=== PATIENT | female | born 1945 | race Caucasian/White ===

== ENCOUNTER → 2019-02-07 | Outpatient (CLI) | payer MEDICARE ==
[2019-02-07 09:27] LABS: Cholesterol 214 mg/dL (< 200); HDL Cholesterol 37 mg/dL (40-59); LDL Cholesterol 155 mg/dL (< 100); Triglycerides 210 mg/dL (< 150)
== END | disposition home or self-care (01) ==
LOC: LAB 08:37
PROVIDERS: ATTEND Internal Medicine
DX: E78.5 Hyperlipidemia, unspecified (principal); R07.89 Other chest pain
CPT/HCPCS: 36415; 80061

== ENCOUNTER → 2019-02-18 | Outpatient (CLI) | payer MEDICARE ==
[~2019-02-18] VITALS: Ht 165.1 cm; Wt 72.6 kg
[~2019-02-18] MED LIST: ADENOSINE 61 MG in GIVE UN-DILUTED 0 ML IV STA
[2019-02-18 09:33] VITALS: BP 140/84
== END | disposition home or self-care (01) ==
LOC: XY 07:59
PROVIDERS: ATTEND Internal Medicine
DX: I25.10 Atherosclerotic heart disease of native coronary artery without angina pectoris (principal); E78.5 Hyperlipidemia, unspecified; Z95.1 Presence of aortocoronary bypass graft
CPT/HCPCS: 78452; 93017; A9500; J0153

== ENCOUNTER 2019-03-25 03:30 | Inpatient (IN) | payer MEDICARE ==
[~2019-03-25] VITALS: Ht 165.1 cm; Wt 72.0 kg
[2019-03-25 03:57] LABS: Hemoglobin 15.5 g/dL (12.2-16.2); Lymphocytes # (auto) 3.8 uL; Monocytes # (auto) 0.7 uL; Nucleated Red Blood Cells % 0.1 %; White Blood Cell 8.1 10^3/uL (4.4-10.8)
[2019-03-25 03:58] LABS: Basophils # (auto) 0 uL; Basophils % (auto) 0.3 % (0.0-2.0); Eosinophils # (auto) 0.2 uL; Eosinophils % (auto) 2.7 % (0.0-7.0); Hematocrit 45.5 % (36.0-46.0); Lymphocytes % (auto) 47.2 % (10.0-50.0); Mean Corpuscular Hemoglobin 26.8 pg (28.0-32.0); Mean Corpuscular Hgb Conc. 34.1 g/dL (32.0-36.0); Mean Corpuscular Volume 78.8 fL (80.0-100.0); Monocytes % (auto) 8.1 % (0.0-12.0); Neutrophils # (auto) 3.4 uL; Neutrophils % (auto) 41.7 % (37.0-80.0); Platelet Count (auto) 341 10^3/uL (140-450); Red Blood Cells 5.77 10^6/uL (4.0-5.20); Red Cell Distribution Width 16.2 % (11.8-14.3)
[2019-03-25] MEDS ORDERED: NITROGLYCERIN 0.4 MG SL TAB SL PRN ×2 (04:00→05:15)
[2019-03-25] MEDS ORDERED: ASPirin 81 mg TAB PO ONE (04:00)
[2019-03-25] MEDS ORDERED: MORPHINE SULFATE 4 MG/ML SYR/VIAL IV ONE (04:00)
[2019-03-25] MEDS ORDERED: ONDANSETRON HCL 4 MG/2 ML VIAL IV ONE (04:00)
[2019-03-25 04:12] LABS: INR 1.06 (0.9-1.15); Partial Thromboplastin Time 29.3 sec (23.64-32.05)
[2019-03-25 04:14] LABS: Albumin 3.2 g/dL (3.4-5.0); BUN/Creatinine Ratio 15.2; Calcium 9.4 mg/dL (8.5-10.1); Potassium 3.8 mmol/L (3.5-5.1)
[2019-03-25 04:19] LABS: Bilirubin, Total 0.4 mg/dL (0.2-1.0); Total Protein 8.6 g/dL (6.4-8.2)
[2019-03-25] MEDS ORDERED: ENOXAPARIN SOD 80 MG/0.8ML SYRINGE SC ONE (04:30)
[2019-03-25] MEDS: SODIUM CHLORIDE 0.9% 1,000 ML IV SCH ×2 (05:05→21:36)
[2019-03-25] MEDS ORDERED: MORPHINE SULF INJ 2 MG/ML SYRINGE 1ML IV PRN (05:15)
[2019-03-25] MEDS ORDERED: ACETAMINOPHEN 325 MG TAB PO PRN (05:15)
[2019-03-25] MEDS ORDERED: DOCUSATE SOD 100 MG CAP PO PRN (05:15)
[2019-03-25] MEDS ORDERED: ONDANSETRON HCL 4 MG/2 ML VIAL IV PRN (05:15)
[2019-03-25] MEDS ORDERED: LORazepam 0.5 MG TAB PO PRN (05:15)
[2019-03-25] MEDS ORDERED: HYDROcodone-ACET 5/325MG TAB PO PRN (05:15)
[2019-03-25] MEDS ORDERED: MORPHINE SULFATE 4 MG/ML SYR/VIAL IV PRN (05:15)
[2019-03-25] MEDS ORDERED: CLOPIDOGREL 300 MG TAB PO ONE (05:15)
[2019-03-25] MEDS ORDERED: CLOPIDOGREL BISULFATE 75 MG TAB PO ONE ×3 (07:45→13:45)
[2019-03-25 07:53] LABS: Cholesterol 336 mg/dL (< 200); HDL Cholesterol 33 mg/dL (40-59); LDL Cholesterol 273 mg/dL (< 100); Triglycerides 165 mg/dL (< 150)
[2019-03-25] MEDS ORDERED: CLOPIDOGREL 300 MG TAB ONE ×2 (08:05→14:11)
[2019-03-25] MEDS: ASPirin 81 mg TAB PO SCH (08:08)
[2019-03-25] MEDS ORDERED: POTASSIUM CHL 20 Meq TABLET PO ONE (08:30)
[2019-03-25] MEDS: LISINOPRIL 5 MG TAB PO SCH (10:00)
[2019-03-25] MEDS ORDERED: AMIODARONE HCL 200 MG TAB PO SCH (10:00)
[2019-03-25] MEDS: METOPROLOL TARTRATE 25 MG TAB PO SCH ×3 (10:00→22:32)
[2019-03-25] MEDS ORDERED: LIDOCAINE 2%HCL (LOCAL ANESTH.) INJ 20ML MDV ONE (10:15)
[2019-03-25] MEDS ORDERED: MIDAZOLAM HCL 1MG/1ML-2 ML VIAL ONE ×2 (10:15→12:39)
[2019-03-25] MEDS ORDERED: fentaNYL CITRATE 100 MCG/2 ML VL ONE (10:15)
[2019-03-25] MEDS ORDERED: ANGIOMAX 250 MG VIAL IV ONE ×2 (10:15→12:07)
[2019-03-25] MEDS ORDERED: IODIXANOL 320MG/ML 100ML BTL IV ONE ×2 (10:16→11:10)
[2019-03-25] MEDS ORDERED: SODIUM CHL 0.9% 50 ML ONE ×2 (10:16→12:07)
[2019-03-25] MEDS ORDERED: VERAPAMIL 2.5MG/ML INJ 2ML VIAL IV ONE (10:19)
[2019-03-25] MEDS ORDERED: HEPARIN SODIUM (PORCINE) 5000 UNITS/ML 1ML VIAL ONE (10:20)
[2019-03-25] MEDS ORDERED: PHENYLEPHRINE HCL 10 MG/ML VL ONE (11:26)
[2019-03-25] MEDS ORDERED: HYDROmorphone HCL 2 MG/ML VL ONE (11:45)
[2019-03-25] MEDS ORDERED: ATROPINE SULF 1 MG/10ml SYR ONE (11:53)
[2019-03-25] MEDS ORDERED: ONDANSETRON HCL 4 MG/2 ML VIAL ONE (12:23)
[2019-03-25] MEDS ORDERED: AMIODARONE HCL (50 MG/ ML) 3 ML VIAL IV ONE (12:40)
[2019-03-25] MEDS ORDERED: SODIUM CHLORIDE 0.9% 1,000 ML IV ONE (13:15)
[2019-03-25] MEDS ORDERED: METOCLOPRAMIDE HCL 5MG/ml INJ 2ml VIAL ONE (13:24)
[2019-03-25] MEDS ORDERED: METOCLOPRAMIDE HCL 5MG/ml INJ 2ml VIAL IV ONE (13:30)
[2019-03-25] MEDS: FENOFIBRATE PO SCH (13:30)
[2019-03-25] MEDS ORDERED: METOCLOPRAMIDE HCL 5MG/ml INJ 2ml VIAL IV PRN (13:30)
[2019-03-25] MEDS ORDERED: PANTOPRAZOLE 40 MG/10 ML VIAL INJ IV ONE (14:45)
--- NOTE | 2019-03-25 15:18 | NUR ---
Received patient from lab scientist. Patient experiencing nausea and vomiting. Phenergan was given prior to coming to tele floor. VS 98/56, 96.4, 62 heart rate, 20 RR and 93%. Right groin dressing clean, dry and intact. Patients bed in locked and lowest position and call light within reach. Patients orders to stay flat until 3:30 and in bed until 7:30. Will continue to monitor.
--- NOTE | 2019-03-25 15:30 | NUR ---
Patients will bring in home medications to reconcile
--- NOTE | 2019-03-25 16:55 | NUR ---
Talked to Dr. Lange, he will write prescription tomorrow for needed medications prior to discharge home.
[2019-03-25 17:08] VITALS: BP 98/56
--- NOTE | 2019-03-25 19:50 | NUR ---
RECEIVED PATIENT IN BED, AAOX4. NO DISTRESS NOTED. AFEBRILE. INTRODUCED MYSELF TO THE PATIENT. ORIENTATION DONE. MILD BLE WEAKNESS NOTED. RIGHT GROIN HAS A DRESSING THAT IS ALL CLEAN, DRY AND INTACT. NO BLEEDING, HEMATOMA NOTED. RIGHT LEG IS A LITTLE COLD. RIGHT PEDAL PULSE IS WEAK. WILL KEEP AN EYE ON PATIENT. POCS DISCUSSED WITH PATIENT AND SHOWED UNDERSTANDING. BED KEPT ON LOWEST POSITION. SIDE RAILS UP. CALL LIGHT/TABLE IN REACH. KEPT COMFORTABLE.
[2019-03-25] MEDS: AMIODARONE HCL 200 MG TAB PO SCH (21:36)
[2019-03-25 22:00] VITALS: BP 118/71
[2019-03-25] MEDS ORDERED: ATORVASTATIN 20 MG TAB PO SCH (22:00)
--- NOTE | 2019-03-25 23:30 | NUR ---
TROP= 6.42 PATIENT RECENTLY HAD AN ANGIOPLASTY. PATIENT IS ASLEEP. ASYMPTOMATIC. NSR ON THE MONITOR.
[2019-03-26 05:00] VITALS: BP 111/74
[2019-03-26 05:46] LABS: Basophils # (auto) 0 uL; Basophils % (auto) 0.6 % (0.0-2.0); Eosinophils # (auto) 0 uL; Eosinophils % (auto) 0.5 % (0.0-7.0); Hematocrit 38.7 % (36.0-46.0); Hemoglobin 12.6 g/dL (12.2-16.2); Lymphocytes # (auto) 1.7 uL; Lymphocytes % (auto) 24.6 % (10.0-50.0); Mean Corpuscular Hemoglobin 25.9 pg (28.0-32.0); Mean Corpuscular Hgb Conc. 32.6 g/dL (32.0-36.0); Mean Corpuscular Volume 79.5 fL (80.0-100.0); Monocytes # (auto) 0.7 uL; Monocytes % (auto) 9.2 % (0.0-12.0); Neutrophils # (auto) 4.6 uL; Neutrophils % (auto) 65.1 % (37.0-80.0); Platelet Count (auto) 258 10^3/uL (140-450); Red Blood Cells 4.88 10^6/uL (4.0-5.20); Red Cell Distribution Width 15.9 % (11.8-14.3); White Blood Cell 7.1 10^3/uL (4.4-10.8)
[2019-03-26 06:05] LABS: Calcium 8.5 mg/dL (8.5-10.1); Potassium 3.7 mmol/L (3.5-5.1)
--- NOTE | 2019-03-26 06:10 | NUR ---
TROPONIN= 11.4 PATIENT RECENTLY HAD AN ANGIOPLASTY DONE. PATIENT REMAINS STABLE. NO DISTRESS NOTED. NSR ON THE MONITOR. WILL INFORM .
--- NOTE | 2019-03-26 06:30 | NUR ---
ON BED, ASLEEP. STABLE. NO DISTRESS NOTED. FOR MORE CARE AND MANAGEMENT.
--- NOTE | 2019-03-26 07:10 | NUR ---
EMMETT NEGRON, RE: HIGH TROPONIN. WILL ENDORSE TO AM SHIFT RN.
--- NOTE | 2019-03-26 07:30 | NUR ---
Opening Shift Note Assumed care of patient, awake and alert laying in bed. No S/S of distress/SOB or pain. Instructed on POC and to call for assist PRN, bed in locked and lowest position and call light within reach. Will continue to monitor for changes Q1hr and PRN.
--- NOTE | 2019-03-26 08:01 | NUR ---
Hospitalist returned night nurses call, informed Hospitalist of elevated troponins. No orders given
[2019-03-26 09:00] VITALS: BP 115/64
[2019-03-26] MEDS: LISINOPRIL 5 MG TAB PO SCH (10:00)
[2019-03-26] MEDS: FENOFIBRATE PO SCH (10:00)
[2019-03-26] MEDS ORDERED: PANTOPRAZOLE 40 MG/10 ML VIAL INJ IV SCH (10:00)
[2019-03-26] MEDS: ASPirin 81 mg TAB PO SCH (10:14)
[2019-03-26] MEDS: AMIODARONE HCL 200 MG TAB PO SCH (10:15)
[2019-03-26] MEDS: METOPROLOL TARTRATE 25 MG TAB PO SCH (10:15)
--- NOTE | 2019-03-26 11:45 | NUR ---
Med Rec Family brought in patients home meds, updated med rec
[2019-03-26] MEDS ORDERED: METO-169 PO (12:18)
[2019-03-26] MEDS ORDERED: LEFL20TA PO (12:18)
[2019-03-26] MEDS ORDERED: ASPI-404 PO (12:18)
[2019-03-26 13:00] VITALS: BP 112/78
--- NOTE | 2019-03-26 13:04 | NUR ---
Dr. Knapp bedside with patient discussing plan of care.
[2019-03-26 14:27] VITALS: BP 112/78
--- NOTE | 2019-03-26 16:50 | NUR ---
Vaccination Patient said she has not had her flu shot this season. She did not recall telling me she had it when completing her initial assessment. Placed order for flu shot.
[2019-03-26] MEDS ORDERED: INFLUENZA QUAD 2019-2020 0.5ml SYRG IM ONE ×2 (16:54→17:00)
[2019-03-26 17:00] VITALS: BP 126/76
--- NOTE | 2019-03-26 17:08 | NUR ---
Discharge instructions given as ordered. Encourage to follow up with PCP in 1 week. Also instructed to call Dr. Rubi office, phone # provided to schedule appointment to be seen within the week. Unable to schedule the appointment as the answering service said they were experiencing technical problems and to call on Mon. Relayed this info to patient. All questions and concerns addressed. Patient verbalized understanding. Medication reconciliation form completed and copy given to patient. Needed flu vaccine given. IV removed with catheter intact and pressure dressing applied. Telemetry unit returned to ICU.
--- NOTE | 2019-03-26 17:21 | NUR ---
Patient taken to vehicle via wheelchair with all personal belongings, accompanied by staff member and family member. No distress noted at time of departure.
== END 2019-03-26 17:21 | disposition home or self-care (01) | DRG 246 ==
LOC: ER 03:36 → TELE 03:37 → TELE-WESTW 15:12
PROVIDERS: ADMIT Hospitalist; ATTEND Internal Medicine
PROC: 027137Z Dilation of Coronary Artery, Two Arteries with Four or More Drug-eluting Intraluminal Devices, Percutaneous Approach (ICD-10-PCS; principal; 2019-03-25)
PROC: B240ZZ3 Ultrasonography of Single Coronary Artery, Intravascular (ICD-10-PCS; 2019-03-25)
PROC: 4A023N7 Measurement of Cardiac Sampling and Pressure, Left Heart, Percutaneous Approach (ICD-10-PCS; 2019-03-25)
PROC: B2131ZZ Fluoroscopy of Multiple Coronary Artery Bypass Grafts using Low Osmolar Contrast (ICD-10-PCS; 2019-03-25)
PROC: B2181ZZ Fluoroscopy of Left Internal Mammary Bypass Graft using Low Osmolar Contrast (ICD-10-PCS; 2019-03-25)
PROC: B2151ZZ Fluoroscopy of Left Heart using Low Osmolar Contrast (ICD-10-PCS; 2019-03-25)
DX: I48.92 Unspecified atrial flutter (principal); I21.4 Non-ST elevation (NSTEMI) myocardial infarction; N17.0 Acute kidney failure with tubular necrosis; I13.0 Hypertensive heart and chronic kidney disease with heart failure and stage 1 through stage 4 chronic kidney disease, or unspecified chronic kidney disease; R73.9 Hyperglycemia, unspecified; E78.5 Hyperlipidemia, unspecified; I49.3 Ventricular premature depolarization; N18.3 Chronic kidney disease, stage 3 (moderate); I25.10 Atherosclerotic heart disease of native coronary artery without angina pectoris; Z88.0 Allergy status to penicillin; Z95.1 Presence of aortocoronary bypass graft; Z79.899 Other long term (current) drug therapy; Z88.2 Allergy status to sulfonamides; Z88.8 Allergy status to other drugs, medicaments and biological substances; Z91.040 Latex allergy status
CPT/HCPCS: 36415; 71045; 80048; 80053; 80061; 83735; 83880; 84484; 85025; 85610; 85730; 86850; 86900; 86901; 92928; 92978; 93005; 93306; 93459; 96372; 96374; 96375; C1887; C9113; G0378; J2250; J2405; Q9967

== ENCOUNTER → 2019-06-11 | Outpatient (CLI) | payer OTHER, MEDICARE ==
[~2019-06-11] MED LIST changes: -ADENOSINE 61 MG in GIVE UN-DILUTED 0 ML IV STA; +ASPI-404 PO; +LEFL20TA PO; +METO-169 PO
[2019-06-11 10:42] LABS: Basophils # (auto) 0.1 uL; Basophils % (auto) 2.8 % (0.0-2.0); Eosinophils # (auto) 0.4 uL; Eosinophils % (auto) 6.8 % (0.0-7.0); Hematocrit 46.1 % (36.0-46.0); Hemoglobin 15.1 g/dL (12.2-16.2); Lymphocytes # (auto) 1.2 uL; Lymphocytes % (auto) 23.3 % (10.0-50.0); Mean Corpuscular Hemoglobin 26.4 pg (28.0-32.0); Mean Corpuscular Hgb Conc. 32.7 g/dL (32.0-36.0); Mean Corpuscular Volume 80.7 fL (80.0-100.0); Monocytes # (auto) 0.5 uL; Monocytes % (auto) 10.1 % (0.0-12.0); Nucleated Red Blood Cells % 0.1 %; Platelet Count (auto) 228 10^3/uL (140-450); Red Blood Cells 5.71 10^6/uL (4.0-5.20); White Blood Cell 5.3 10^3/uL (4.4-10.8)
[2019-06-11 11:04] LABS: Albumin 3.6 g/dL (3.4-5.0); Potassium 4.3 mmol/L (3.5-5.1)
[2019-06-11 11:07] LABS: BUN/Creatinine Ratio 17.9; Bilirubin, Total 0.3 mg/dL (0.2-1.0); Total Protein 7.5 g/dL (6.4-8.2)
== END | disposition home or self-care (01) ==
LOC: LAB 10:25
PROVIDERS: ATTEND Internal Medicine
DX: I25.10 Atherosclerotic heart disease of native coronary artery without angina pectoris (principal)
CPT/HCPCS: 36415; 80053; 84439; 84443; 85025; 85652

== ENCOUNTER → 2019-07-16 | Outpatient (CLI) | payer OTHER, MEDICARE ==
[2019-07-16 09:03] LABS: Basophils # (auto) 0.1 10 ^3/uL (0-0.2); Basophils % (auto) 2.4 % (0.0-2.0); Eosinophils # (auto) 0.4 10 ^3/uL (0-0.8); Hematocrit 43.3 % (36.0-46.0); Hemoglobin 14.5 g/dL (12.2-16.2); Lymphocytes # (auto) 1.5 10 ^3/uL (0.4-5.4); Lymphocytes % (auto) 28.1 % (10.0-50.0); Mean Corpuscular Hemoglobin 27.6 pg (28.0-32.0); Mean Corpuscular Hgb Conc. 33.5 g/dL (32.0-36.0); Mean Corpuscular Volume 82.4 fL (80.0-100.0); Monocytes # (auto) 0.6 10 ^3/uL (0-1.3); Monocytes % (auto) 10.5 % (0.0-12.0); Neutrophils # (auto) 2.8 10 ^3/uL (1.6-8.6); Nucleated Red Blood Cells % 0.2 %; Platelet Count (auto) 203 10^3/uL (140-450); Red Blood Cells 5.26 10^6/uL (4.0-5.20); Red Cell Distribution Width 18.8 % (11.8-14.3); White Blood Cell 5.4 10^3/uL (4.4-10.8)
[2019-07-16 09:35] LABS: Calcium 8.9 mg/dL (8.5-10.1); Magnesium 2.2 mg/dL (1.6-2.6); Potassium 4.4 mmol/L (3.5-5.1)
[2019-07-16 09:40] LABS: Albumin 3.2 g/dL (3.4-5.0); BUN/Creatinine Ratio 15.3; Bilirubin, Total 0.3 mg/dL (0.2-1.0); Total Protein 7.3 g/dL (6.4-8.2)
== END | disposition home or self-care (01) ==
LOC: LAB 08:32
PROVIDERS: ATTEND Internal Medicine
DX: M06.9 Rheumatoid arthritis, unspecified (principal); K52.9 Noninfective gastroenteritis and colitis, unspecified
CPT/HCPCS: 36415; 80053; 83735; 85025; 87045; 87427

== ENCOUNTER → 2019-07-30 | Outpatient (CLI) | payer OTHER | END | disposition home or self-care (01) | LOC: LAB 14:02 | PROVIDERS: ATTEND Internal Medicine | DX: K52.9 Noninfective gastroenteritis and colitis, unspecified (principal) | CPT/HCPCS: 87493 ==

== ENCOUNTER → 2019-09-20 | Outpatient (CLI) | payer OTHER, MEDICARE ==
[~2019-09-20] VITALS: Ht 165.1 cm; Wt 72.6 kg
[~2019-09-20] MED LIST changes: +ADENOSINE 61 MG in GIVE UN-DILUTED 0 ML IV ONE; +ADENOSINE 90 MG/30 ML INJ IV ONE
== END | disposition home or self-care (01) ==
LOC: Rad HDHVI 13:32
PROVIDERS: ATTEND Internal Medicine Cardiovascular Disease
DX: I10 Essential (primary) hypertension (principal); R07.9 Chest pain, unspecified; I25.2 Old myocardial infarction; I25.10 Atherosclerotic heart disease of native coronary artery without angina pectoris; E78.00 Pure hypercholesterolemia, unspecified; Z95.1 Presence of aortocoronary bypass graft; Z82.49 Family history of ischemic heart disease and other diseases of the circulatory system
CPT/HCPCS: 78452; 93005; 96374; 96375; A9500; J0153

== ENCOUNTER → 2019-09-26 | Outpatient (CLI) | payer OTHER, MEDICARE ==
[~2019-09-26] MED LIST changes: -ADENOSINE 61 MG in GIVE UN-DILUTED 0 ML IV ONE; -ADENOSINE 90 MG/30 ML INJ IV ONE
[2019-09-26 14:49] LABS: Basophils # (auto) 0.1 10 ^3/uL (0-0.2); Basophils % (auto) 1.9 % (0.0-2.0); Eosinophils # (auto) 0.3 10 ^3/uL (0-0.8); Eosinophils % (auto) 5.8 % (0.0-7.0); Hematocrit 42.5 % (36.0-46.0); Hemoglobin 13.9 g/dL (12.2-16.2); Lymphocytes # (auto) 1.6 10 ^3/uL (0.4-5.4); Lymphocytes % (auto) 31.8 % (10.0-50.0); Mean Corpuscular Hemoglobin 27.9 pg (28.0-32.0); Mean Corpuscular Hgb Conc. 32.6 g/dL (32.0-36.0); Mean Corpuscular Volume 85.7 fL (80.0-100.0); Monocytes # (auto) 0.5 10 ^3/uL (0-1.3); Monocytes % (auto) 9.4 % (0.0-12.0); Neutrophils # (auto) 2.6 10 ^3/uL (1.6-8.6); Neutrophils % (auto) 51.1 % (37.0-80.0); Nucleated Red Blood Cells % 0.1 %; Platelet Count (auto) 203 10^3/uL (140-450); Red Blood Cells 4.96 10^6/uL (4.0-5.20); Red Cell Distribution Width 15.2 % (11.8-14.3)
== END | disposition home or self-care (01) ==
LOC: LAB 14:32
PROVIDERS: ATTEND Internal Medicine Rheumatology
DX: M06.9 Rheumatoid arthritis, unspecified (principal)
CPT/HCPCS: 36415; 82040; 82565; 84450; 84460; 85025

== ENCOUNTER → 2019-11-12 | Outpatient (CLI) | payer OTHER, MEDICARE ==
[2019-11-12 09:00] LABS: Cholesterol 385 mg/dL (< 200); HDL Cholesterol 39 mg/dL (40-59); LDL Cholesterol 267 mg/dL (< 100); Triglycerides 265 mg/dL (< 150)
== END | disposition home or self-care (01) ==
LOC: LAB 08:06
PROVIDERS: ATTEND Internal Medicine
DX: E78.00 Pure hypercholesterolemia, unspecified (principal)
CPT/HCPCS: 36415; 80061

== ENCOUNTER → 2020-03-13 | Outpatient (CLI) | payer OTHER ==
[~2020-03-13] MED LIST changes: -ASPI-404 PO; +ASPI-543 PO
[2020-03-13 12:11] LABS: Basophils # (auto) 0.1 10 ^3/uL (0-0.2); Basophils % (auto) 1.9 % (0.0-2.0); Eosinophils # (auto) 0.3 10 ^3/uL (0-0.8); Eosinophils % (auto) 4.7 % (0.0-7.0); Hematocrit 42.4 % (36.0-46.0); Hemoglobin 14.3 g/dL (12.2-16.2); Lymphocytes # (auto) 1.3 10 ^3/uL (0.4-5.4); Lymphocytes % (auto) 22.7 % (10.0-50.0); Mean Corpuscular Hemoglobin 29.6 pg (28.0-32.0); Mean Corpuscular Hgb Conc. 33.7 g/dL (32.0-36.0); Mean Corpuscular Volume 87.9 fL (80.0-100.0); Monocytes # (auto) 0.5 10 ^3/uL (0-1.3); Monocytes % (auto) 8.6 % (0.0-12.0); Neutrophils # (auto) 3.6 10 ^3/uL (1.6-8.6); Neutrophils % (auto) 62.1 % (37.0-80.0); Nucleated Red Blood Cells % 0.4 %; Platelet Count (auto) 228 10^3/uL (140-450); Red Blood Cells 4.82 10^6/uL (4.0-5.20); Red Cell Distribution Width 14.8 % (11.8-14.3); Urine Blood Negative /uL (Negative); Urine Specific Gravity 1.026 (1.001-1.035); White Blood Cell 5.8 10^3/uL (4.4-10.8)
[2020-03-13 12:15] LABS: Potassium 4.3 mmol/L (3.5-5.1)
[2020-03-13 12:23] LABS: Free T4 (Free Thyroxine) 1.2 ng/dL (0.89-1.76)
[2020-03-13 12:55] LABS: Albumin 3.2 g/dL (3.4-5.0); BUN/Creatinine Ratio 11.4; Bilirubin, Total 0.5 mg/dL (0.2-1.0); Calcium 8.9 mg/dL (8.5-10.1); Total Protein 7.1 g/dL (6.4-8.2)
== END | disposition home or self-care (01) ==
LOC: LAB 10:40
PROVIDERS: ATTEND Internal Medicine
DX: I10 Essential (primary) hypertension (principal); E11.9 Type 2 diabetes mellitus without complications; D51.3 Other dietary vitamin B12 deficiency anemia; E55.9 Vitamin D deficiency, unspecified; D64.9 Anemia, unspecified; R00.2 Palpitations; R53.1 Weakness; R30.0 Dysuria
CPT/HCPCS: 36415; 80053; 80061; 81003; 82306; 82607; 83036; 84439; 84443; 85025

== ENCOUNTER → 2020-07-08 | Outpatient (CLI) | payer OTHER | END | disposition home or self-care (01) | LOC: LAB 12:55 | PROVIDERS: ATTEND Internal Medicine Pulmonary Disease | DX: Z01.812 Encounter for preprocedural laboratory examination (principal); Z20.822 Contact with and (suspected) exposure to COVID-19; J45.20 Mild intermittent asthma, uncomplicated | CPT/HCPCS: 36415; 87426 ==

== ENCOUNTER → 2020-07-09 | Outpatient (CLI) | payer OTHER ==
[~2020-07-09] MED LIST changes: +ALBUTEROL SULF 2.5 MG/0.5ML(0.5%) NEB SOLN ONE
== END | disposition home or self-care (01) ==
LOC: RT 14:36
PROVIDERS: ATTEND Internal Medicine
DX: J98.8 Other specified respiratory disorders (principal); R93.89 Abnormal findings on diagnostic imaging of other specified body structures
CPT/HCPCS: 94060; 94727; 94729

== ENCOUNTER → 2020-08-26 | Outpatient (CLI) | payer OTHER ==
[~2020-08-26] MED LIST changes: -ALBUTEROL SULF 2.5 MG/0.5ML(0.5%) NEB SOLN ONE
[2020-08-26 09:13] LABS: Basophils # (auto) 0.2 10 ^3/uL (0-0.2); Basophils % (auto) 3.1 % (0.0-2.0); Eosinophils # (auto) 0.4 10 ^3/uL (0-0.8); Eosinophils % (auto) 8.7 % (0.0-7.0); Hematocrit 45.4 % (36.0-46.0); Lymphocytes # (auto) 1.7 10 ^3/uL (0.4-5.4); Lymphocytes % (auto) 34.8 % (10.0-50.0); Mean Corpuscular Hemoglobin 29.2 pg (28.0-32.0); Mean Corpuscular Volume 88.6 fL (80.0-100.0); Monocytes # (auto) 0.5 10 ^3/uL (0-1.3); Neutrophils # (auto) 2.2 10 ^3/uL (1.6-8.6); Neutrophils % (auto) 43.4 % (37.0-80.0); Nucleated Red Blood Cells % 0.2 %; Platelet Count (auto) 210 10^3/uL (140-450); Red Blood Cells 5.13 10^6/uL (4.0-5.20); Red Cell Distribution Width 15.7 % (11.8-14.3)
[2020-08-26 09:58] LABS: Potassium 4.4 mmol/L (3.5-5.1)
[2020-08-26 10:13] LABS: Albumin 3.5 g/dL (3.4-5.0); BUN/Creatinine Ratio 19.8; Bilirubin, Total 0.5 mg/dL (0.2-1.0); Calcium 9.2 mg/dL (8.5-10.1); Total Protein 6.6 g/dL (6.4-8.2)
== END | disposition home or self-care (01) ==
LOC: LAB 08:46
PROVIDERS: ATTEND Internal Medicine
DX: I10 Essential (primary) hypertension (principal); M06.9 Rheumatoid arthritis, unspecified
CPT/HCPCS: 36415; 80053; 80061; 85025; 85652

== ENCOUNTER → 2020-11-18 | Outpatient (CLI) | payer OTHER, MEDICARE ==
[~2020-11-18] MED LIST changes: -METO-169 PO; +METO-289 PO
== END | disposition home or self-care (01) ==
LOC: Rad HDHVI 14:57
PROVIDERS: ATTEND Internal Medicine
DX: I10 Essential (primary) hypertension (principal); R93.89 Abnormal findings on diagnostic imaging of other specified body structures; Z95.1 Presence of aortocoronary bypass graft
CPT/HCPCS: 93306

== ENCOUNTER → 2020-12-15 | Outpatient (CLI) | payer OTHER, MEDICARE ==
[~2020-12-15] VITALS: Ht 165.1 cm; Wt 70.3 kg
[~2020-12-15] MED LIST changes: +ADENOSINE 59 MG in GIVE UN-DILUTED 0 ML IV ONE; +ADENOSINE 90 MG/30 ML INJ IV ONE
== END | disposition home or self-care (01) ==
LOC: Rad HDHVI 08:26
PROVIDERS: ATTEND Internal Medicine
DX: I25.10 Atherosclerotic heart disease of native coronary artery without angina pectoris (principal); I10 Essential (primary) hypertension; E78.5 Hyperlipidemia, unspecified; I25.2 Old myocardial infarction; Z82.49 Family history of ischemic heart disease and other diseases of the circulatory system; Z95.1 Presence of aortocoronary bypass graft
CPT/HCPCS: 78452; 93005; 96374; 96375; A9500; J0153

== ENCOUNTER → 2020-12-24 | Outpatient (CLI) | payer OTHER ==
[~2020-12-24] MED LIST changes: -ADENOSINE 59 MG in GIVE UN-DILUTED 0 ML IV ONE; -ADENOSINE 90 MG/30 ML INJ IV ONE
[2020-12-24 14:26] LABS: Basophils # (auto) 0.1 10 ^3/uL (0-0.2); Eosinophils # (auto) 0.5 10 ^3/uL (0-0.8); Hematocrit 41.1 % (36.0-46.0); Hemoglobin 13.7 g/dL (12.2-16.2); Lymphocytes # (auto) 1.8 10 ^3/uL (0.4-5.4); Lymphocytes % (auto) 29.3 % (10.0-50.0); Mean Corpuscular Hemoglobin 29.2 pg (28.0-32.0); Mean Corpuscular Hgb Conc. 33.2 g/dL (32.0-36.0); Mean Corpuscular Volume 87.9 fL (80.0-100.0); Monocytes # (auto) 0.6 10 ^3/uL (0-1.3); Monocytes % (auto) 8.8 % (0.0-12.0); Neutrophils # (auto) 3.3 10 ^3/uL (1.6-8.6); Neutrophils % (auto) 51.9 % (37.0-80.0); Nucleated Red Blood Cells % 0.1 %; Red Blood Cells 4.68 10^6/uL (4.0-5.20); Red Cell Distribution Width 14.6 % (11.8-14.3); White Blood Cell 6.3 10^3/uL (4.4-10.8)
[2020-12-24 14:50] LABS: Albumin 3.3 g/dL (3.4-5.0); Calcium 9.3 mg/dL (8.5-10.1); Potassium 4.5 mmol/L (3.5-5.1)
[2020-12-24 14:54] LABS: BUN/Creatinine Ratio 20.7; Bilirubin, Total 0.2 mg/dL (0.2-1.0); Total Protein 6.8 g/dL (6.4-8.2); Uric Acid 5.7 mg/dL (2.6-6.0)
== END | disposition home or self-care (01) ==
LOC: LAB 14:07
PROVIDERS: ATTEND Internal Medicine
DX: I10 Essential (primary) hypertension (principal); M06.9 Rheumatoid arthritis, unspecified
CPT/HCPCS: 36415; 80053; 83970; 84550; 85025; 85652

== ENCOUNTER 2021-02-26 23:09 | Inpatient (IN) | payer OTHER ==
[~2021-02-26] VITALS: Ht 165.1 cm; Wt 183.6 kg
[2021-02-27 00:21] LABS: Basophils # (auto) 0 10 ^3/uL (0-0.2); Basophils % (auto) 0.5 % (0.0-2.0); Eosinophils # (auto) 0 10 ^3/uL (0-0.8); Hemoglobin 13.9 g/dL (12.2-16.2); Lymphocytes # (auto) 0.5 10 ^3/uL (0.4-5.4); Lymphocytes % (auto) 8.1 % (10.0-50.0); Mean Corpuscular Hemoglobin 29.3 pg (28.0-32.0); Mean Corpuscular Volume 86.2 fL (80.0-100.0); Monocytes # (auto) 0.5 10 ^3/uL (0-1.3); Monocytes % (auto) 6.9 % (0.0-12.0); Neutrophils # (auto) 5.7 10 ^3/uL (1.6-8.6); Neutrophils % (auto) 84.5 % (37.0-80.0); Nucleated Red Blood Cells % 0.1 %; Red Blood Cells 4.75 10^6/uL (4.0-5.20); Red Cell Distribution Width 14.7 % (11.8-14.3); White Blood Cell 6.7 10^3/uL (4.4-10.8)
[2021-02-27 00:54] LABS: Anion Gap 12 (5-15); Blood Urea Nitrogen 32 mg/dL (7-18); Calcium 8.6 mg/dL (8.5-10.1); Carbon Dioxide 21 mmol/L (21-32); Chloride 105 mmol/L (98-107); Glucose 106 mg/dL (74-106); Sodium 138 mmol/L (136-145)
[2021-02-27 00:57] LABS: Alanine Aminotransferase 45 U/L (13-56); Aspartate Aminotransferase 46 U/L (15-37); BUN/Creatinine Ratio 25.4; GFR African American 54 mL/min; GFR Non-African American 44 mL/min
[2021-02-27 01:01] LABS: Alkaline Phosphatase 46 U/L (45-117); Bilirubin, Total 0.4 mg/dL (0.2-1.0); Total Protein 6.9 g/dL (6.4-8.2)
[2021-02-27] MEDS ORDERED: NITROGLYCERIN 0.4 MG SL TAB SL PRN (04:30)
[2021-02-27] MEDS ORDERED: ONDANSETRON HCL 4 MG/2 ML VIAL IV PRN (04:30)
[2021-02-27] MEDS ORDERED: MORPHINE SULFATE INJECTION 2 MG/ML SYRG IV PRN (04:30)
[2021-02-27] MEDS ORDERED: REMDESIVIR PER PHARMACY 0 ML IV SCH (04:30)
[2021-02-27] MEDS ORDERED: SODIUM CHLORIDE 0.9% 1,000 ML IV ONE (04:30)
[2021-02-27] MEDS ORDERED: hydrALAZINE HCL 20 MG/ML VL IV PRN (04:30)
[2021-02-27] MEDS ORDERED: HYDROcodone-ACET 5/325MG TAB PO PRN (04:30)
[2021-02-27] MEDS ORDERED: DOCUSATE SOD 100 MG CAP PO PRN (04:30)
[2021-02-27 05:15] VITALS: BP 135/92
[2021-02-27] MEDS ORDERED: HEPARIN SODIUM (PORCINE) 5000 UNITS/ML 1ML VIAL SC SCH (06:00)
[2021-02-27] MEDS ORDERED: SACU1TAB7 PO (06:11)
[2021-02-27] MEDS ORDERED: EZET-10 PO (06:14)
[2021-02-27] MEDS ORDERED: [UNRECOGNIZED DRUG - CODE] PO (06:14)
[2021-02-27] MEDS ORDERED: FENO145T27 PO (06:14)
[2021-02-27] MEDS ORDERED: CLOP75TA70 PO (06:14)
[2021-02-27] MEDS: SODIUM CHLOR 0.9% PF (SALINE LOCK) 10ML VIAL/SYR IV SCH ×3 (06:17→21:53)
[2021-02-27] MEDS: BUDESONIDE (INHALATION) 180 MCG IH IN SCH ×2 (07:59→22:45)
[2021-02-27] MEDS ORDERED: REMDESIVIR 200 MG in NS 210ml LOADING DOSE ADULT IV ONE (08:30)
[2021-02-27 09:00] VITALS: BP 94/58
[2021-02-27] MEDS: DexAMETHasone SOD PHOS 10MG/1ML VIAL INJ IV SCH (09:45)
[2021-02-27] MEDS: FAMOTIDINE (10MG/ML) 2ML VL IV SCH (09:45)
[2021-02-27] MEDS: CHOLECALCIFEROL (VITD3) 2,000 UNIT CAP/TAB PO SCH (09:46)
[2021-02-27] MEDS: ASPirin 81 mg TAB PO SCH (09:46)
[2021-02-27] MEDS: MULTIPLE VITAMIN TAB PO SCH (09:46)
[2021-02-27] MEDS: ASCORBIC ACID 1,000 MG TAB PO SCH (09:46)
[2021-02-27] MEDS: ZINC SULFATE 220mg CAP or TAB PO SCH (09:46)
[2021-02-27] MEDS ORDERED: AZITHROMYCIN 500MG/ 250ML 250 ML IV SCH (10:00)
[2021-02-27 11:57] LABS: Basophils # (auto) 0 10 ^3/uL (0-0.2); Basophils % (auto) 0.3 % (0.0-2.0); Eosinophils # (auto) 0 10 ^3/uL (0-0.8); Hematocrit 39.3 % (36.0-46.0); Hemoglobin 13.1 g/dL (12.2-16.2); Lymphocytes # (auto) 0.6 10 ^3/uL (0.4-5.4); Lymphocytes % (auto) 12.2 % (10.0-50.0); Mean Corpuscular Hgb Conc. 33.4 g/dL (32.0-36.0); Mean Corpuscular Volume 86.7 fL (80.0-100.0); Monocytes # (auto) 0.3 10 ^3/uL (0-1.3); Monocytes % (auto) 5.4 % (0.0-12.0); Neutrophils # (auto) 4.2 10 ^3/uL (1.6-8.6); Neutrophils % (auto) 82.1 % (37.0-80.0); Red Blood Cells 4.53 10^6/uL (4.0-5.20); Red Cell Distribution Width 14.5 % (11.8-14.3); White Blood Cell 5.2 10^3/uL (4.4-10.8)
[2021-02-27 12:12] LABS: Albumin 2.9 g/dL (3.4-5.0); Calcium 8.7 mg/dL (8.5-10.1); Magnesium 2.3 mg/dL (1.6-2.6); Potassium 3.8 mmol/L (3.5-5.1)
[2021-02-27 12:25] LABS: BUN/Creatinine Ratio 27.2; Bilirubin, Total 0.6 mg/dL (0.2-1.0); Total Protein 6.5 g/dL (6.4-8.2)
[2021-02-27 13:00] VITALS: BP 93/55
[2021-02-27] MEDS: guaiFENesin-DM 100/10mg/5ml SYR PO PRN ×2 (15:09→21:53)
[2021-02-27 17:00] VITALS: BP 92/58
[2021-02-27 21:58] VITALS: BP 92/86
[2021-02-27 22:00] VITALS: BP 109/67
[2021-02-28 06:00] VITALS: BP 100/72
[2021-02-28] MEDS: SODIUM CHLOR 0.9% PF (SALINE LOCK) 10ML VIAL/SYR IV SCH ×3 (06:00→22:12)
[2021-02-28] MEDS: guaiFENesin-DM 100/10mg/5ml SYR PO PRN ×2 (06:46→22:07)
[2021-02-28 07:27] LABS: Basophils # (auto) 0 10 ^3/uL (0-0.2); Basophils % (auto) 0.3 % (0.0-2.0); Eosinophils # (auto) 0 10 ^3/uL (0-0.8); Hematocrit 40.7 % (36.0-46.0); Hemoglobin 13.9 g/dL (12.2-16.2); Lymphocytes # (auto) 0.7 10 ^3/uL (0.4-5.4); Lymphocytes % (auto) 13.7 % (10.0-50.0); Mean Corpuscular Hemoglobin 29.8 pg (28.0-32.0); Mean Corpuscular Hgb Conc. 34.1 g/dL (32.0-36.0); Mean Corpuscular Volume 87.3 fL (80.0-100.0); Monocytes # (auto) 0.4 10 ^3/uL (0-1.3); Monocytes % (auto) 7.4 % (0.0-12.0); Neutrophils # (auto) 4.1 10 ^3/uL (1.6-8.6); Neutrophils % (auto) 78.6 % (37.0-80.0); Nucleated Red Blood Cells % 0.1 %; Red Blood Cells 4.67 10^6/uL (4.0-5.20); Red Cell Distribution Width 14.2 % (11.8-14.3); White Blood Cell 5.3 10^3/uL (4.4-10.8)
[2021-02-28 07:34] LABS: Albumin 2.7 g/dL (3.4-5.0); Calcium 8.8 mg/dL (8.5-10.1); Potassium 3.9 mmol/L (3.5-5.1)
[2021-02-28 07:42] LABS: BUN/Creatinine Ratio 28.6; Bilirubin, Total 0.4 mg/dL (0.2-1.0); CRP High Sensitivity 9.4 mg/dL (< 0.3); Total Protein 6.8 g/dL (6.4-8.2)
[2021-02-28] MEDS: ASPirin 81 mg TAB PO SCH (09:00)
[2021-02-28] MEDS: DexAMETHasone SOD PHOS 10MG/1ML VIAL INJ IV SCH (09:00)
[2021-02-28] MEDS: FAMOTIDINE (10MG/ML) 2ML VL IV SCH (09:00)
[2021-02-28] MEDS: MULTIPLE VITAMIN TAB PO SCH (09:01)
[2021-02-28] MEDS: ZINC SULFATE 220mg CAP or TAB PO SCH (09:01)
[2021-02-28] MEDS: CLOPIDOGREL BISULFATE 75 MG TAB PO SCH (09:02)
[2021-02-28] MEDS: CHOLECALCIFEROL (VITD3) 2,000 UNIT CAP/TAB PO SCH (09:02)
[2021-02-28] MEDS: ASCORBIC ACID 1,000 MG TAB PO SCH (09:02)
[2021-02-28] MEDS: AZITHROMYCIN 250 MG TAB PO SCH (09:03)
[2021-02-28] MEDS: BUDESONIDE (INHALATION) 180 MCG IH IN SCH ×2 (09:20→22:26)
[2021-02-28 10:08] VITALS: BP 140/88
[2021-02-28] MEDS: REMDESIVIR 100mg 100 MG in SODIUM CHL 0.9% 230 ML IV SCH (15:48)
[2021-02-28 17:22] VITALS: BP 102/69
[2021-02-28] MEDS: ACETAMINOPHEN 500 MG TAB PO PRN (22:12)
[2021-02-28 22:16] VITALS: BP 105/70
[2021-02-28] MEDS: ALBUTEROL SULF HFA 90MCG INH 200DOSE IN PRN (22:26)
[2021-03-01 05:25] VITALS: BP 150/87
[2021-03-01] MEDS: SODIUM CHLOR 0.9% PF (SALINE LOCK) 10ML VIAL/SYR IV SCH ×3 (06:15→21:46)
[2021-03-01 09:00] VITALS: BP 106/72
[2021-03-01] MEDS: FAMOTIDINE (10MG/ML) 2ML VL IV SCH (09:44)
[2021-03-01] MEDS: DexAMETHasone SOD PHOS 10MG/1ML VIAL INJ IV SCH (09:44)
[2021-03-01] MEDS: MULTIPLE VITAMIN TAB PO SCH (09:45)
[2021-03-01] MEDS: ASPirin 81 mg TAB PO SCH (09:45)
[2021-03-01] MEDS: ZINC SULFATE 220mg CAP or TAB PO SCH (09:45)
[2021-03-01] MEDS: AZITHROMYCIN 250 MG TAB PO SCH (09:46)
[2021-03-01] MEDS: CLOPIDOGREL BISULFATE 75 MG TAB PO SCH (09:46)
[2021-03-01] MEDS: ASCORBIC ACID 1,000 MG TAB PO SCH (09:46)
[2021-03-01] MEDS: CHOLECALCIFEROL (VITD3) 2,000 UNIT CAP/TAB PO SCH (09:46)
[2021-03-01] MEDS: ALBUTEROL SULF HFA 90MCG INH 200DOSE IN PRN ×2 (09:46→22:13)
[2021-03-01] MEDS: BUDESONIDE (INHALATION) 180 MCG IH IN SCH ×2 (09:46→22:13)
[2021-03-01] MEDS ORDERED: FUROSEMIDE 20 MG/2 ML VIAL IV ONE (10:15)
[2021-03-01 12:35] VITALS: BP 104/53
[2021-03-01 17:00] VITALS: BP 117/77
[2021-03-01] MEDS: REMDESIVIR 100mg 100 MG in SODIUM CHL 0.9% 230 ML IV SCH (17:21)
[2021-03-01] MEDS: ENOXAPARIN SOD 40 MG/0.4 ML SYRINGE SC SCH (21:44)
[2021-03-02] MEDS: SODIUM CHLOR 0.9% PF (SALINE LOCK) 10ML VIAL/SYR IV SCH ×3 (06:00→22:19)
[2021-03-02] MEDS: BUDESONIDE (INHALATION) 180 MCG IH IN SCH (06:13)
[2021-03-02] MEDS: ALBUTEROL SULF HFA 90MCG INH 200DOSE IN PRN ×2 (06:14→20:56)
[2021-03-02 07:16] LABS: Potassium 3.9 mmol/L (3.5-5.1)
[2021-03-02 07:24] LABS: Albumin 2.3 g/dL (3.4-5.0); BUN/Creatinine Ratio 27.4; Bilirubin, Total 0.5 mg/dL (0.2-1.0); Calcium 8.5 mg/dL (8.5-10.1); Total Protein 5.7 g/dL (6.4-8.2)
[2021-03-02] MEDS: DexAMETHasone SOD PHOS 10MG/1ML VIAL INJ IV SCH (09:07)
[2021-03-02] MEDS: ASPirin 81 mg TAB PO SCH (09:08)
[2021-03-02] MEDS: FAMOTIDINE (10MG/ML) 2ML VL IV SCH (09:08)
[2021-03-02] MEDS: ZINC SULFATE 220mg CAP or TAB PO SCH (09:08)
[2021-03-02] MEDS: CHOLECALCIFEROL (VITD3) 2,000 UNIT CAP/TAB PO SCH (09:09)
[2021-03-02] MEDS: MULTIPLE VITAMIN TAB PO SCH (09:09)
[2021-03-02] MEDS: ASCORBIC ACID 1,000 MG TAB PO SCH (09:09)
[2021-03-02] MEDS: CLOPIDOGREL BISULFATE 75 MG TAB PO SCH (09:09)
[2021-03-02] MEDS: AZITHROMYCIN 250 MG TAB PO SCH (09:10)
[2021-03-02] MEDS: ENOXAPARIN SOD 40 MG/0.4 ML SYRINGE SC SCH ×2 (09:12→22:20)
[2021-03-02 09:27] VITALS: BP 124/75
[2021-03-02] MEDS ORDERED: FUROSEMIDE 20 MG/2 ML VIAL IV ONE (09:45)
[2021-03-02 13:27] VITALS: BP 122/75
[2021-03-02] MEDS: REMDESIVIR 100mg 100 MG in SODIUM CHL 0.9% 230 ML IV SCH (14:37)
[2021-03-02] MEDS: BUDESONIDE (INHALATION) 0.5 MG/2 ML NEB NEB SCH (20:25)
[2021-03-02 22:00] VITALS: BP 111/69
[2021-03-03 05:00] VITALS: BP 110/69
[2021-03-03 06:38] LABS: Basophils # (auto) 0 10 ^3/uL (0-0.2); Basophils % (auto) 0.2 % (0.0-2.0); Eosinophils # (auto) 0 10 ^3/uL (0-0.8); Hematocrit 37.8 % (36.0-46.0); Hemoglobin 12.6 g/dL (12.2-16.2); Lymphocytes # (auto) 0.6 10 ^3/uL (0.4-5.4); Lymphocytes % (auto) 9.7 % (10.0-50.0); Mean Corpuscular Hemoglobin 29.2 pg (28.0-32.0); Mean Corpuscular Hgb Conc. 33.4 g/dL (32.0-36.0); Mean Corpuscular Volume 87.6 fL (80.0-100.0); Monocytes # (auto) 0.4 10 ^3/uL (0-1.3); Monocytes % (auto) 5.3 % (0.0-12.0); Neutrophils # (auto) 5.7 10 ^3/uL (1.6-8.6); Neutrophils % (auto) 84.8 % (37.0-80.0); Nucleated Red Blood Cells % 0.1 %; Red Blood Cells 4.31 10^6/uL (4.0-5.20); Red Cell Distribution Width 14.7 % (11.8-14.3); White Blood Cell 6.7 10^3/uL (4.4-10.8)
[2021-03-03 06:43] LABS: Albumin 2.2 g/dL (3.4-5.0); Calcium 8.5 mg/dL (8.5-10.1); Potassium 3.7 mmol/L (3.5-5.1)
[2021-03-03 06:51] LABS: BUN/Creatinine Ratio 25.6; Bilirubin, Total 0.7 mg/dL (0.2-1.0); CRP High Sensitivity 17.9 mg/dL (< 0.3); Total Protein 5.9 g/dL (6.4-8.2)
[2021-03-03] MEDS: BUDESONIDE (INHALATION) 0.5 MG/2 ML NEB NEB SCH ×2 (07:50→22:45)
[2021-03-03 08:00] VITALS: BP 130/64
[2021-03-03] MEDS: ALBUTEROL SULF HFA 90MCG INH 200DOSE IN PRN ×2 (09:35→22:45)
[2021-03-03] MEDS: ASPirin 81 mg TAB PO SCH (10:00)
[2021-03-03] MEDS: MULTIPLE VITAMIN TAB PO SCH (10:24)
[2021-03-03] MEDS: ZINC SULFATE 220mg CAP or TAB PO SCH (10:24)
[2021-03-03] MEDS: AZITHROMYCIN 250 MG TAB PO SCH (10:25)
[2021-03-03] MEDS: ENOXAPARIN SOD 40 MG/0.4 ML SYRINGE SC SCH ×2 (10:25→22:16)
[2021-03-03] MEDS: CHOLECALCIFEROL (VITD3) 2,000 UNIT CAP/TAB PO SCH (10:25)
[2021-03-03] MEDS: ASCORBIC ACID 1,000 MG TAB PO SCH (10:25)
[2021-03-03] MEDS: CLOPIDOGREL BISULFATE 75 MG TAB PO SCH (10:26)
[2021-03-03] MEDS ORDERED: FUROSEMIDE 20 MG/2 ML VIAL IV ONE (11:00)
[2021-03-03] MEDS: DexAMETHasone SOD PHOS 10MG/1ML VIAL INJ IV SCH (11:27)
[2021-03-03] MEDS: FAMOTIDINE (10MG/ML) 2ML VL IV SCH (11:27)
[2021-03-03 12:00] VITALS: BP 118/87
[2021-03-03] MEDS: SODIUM CHLOR 0.9% PF (SALINE LOCK) 10ML VIAL/SYR IV SCH ×2 (14:36→22:16)
[2021-03-03] MEDS: REMDESIVIR 100mg 100 MG in SODIUM CHL 0.9% 230 ML IV SCH (16:25)
[2021-03-03 16:26] VITALS: BP 106/71
[2021-03-03 22:00] VITALS: BP 104/67
[2021-03-03] MEDS: ENTRESTO PO SCH (22:00)
[2021-03-04 05:00] VITALS: BP 102/69
[2021-03-04] MEDS: ALBUTEROL SULF HFA 90MCG INH 200DOSE IN PRN ×2 (06:25→19:12)
[2021-03-04] MEDS: BUDESONIDE (INHALATION) 0.5 MG/2 ML NEB NEB SCH ×2 (06:25→21:46)
[2021-03-04 09:00] VITALS: BP 105/81
[2021-03-04] MEDS: ASPirin 81 mg TAB PO SCH (10:00)
[2021-03-04] MEDS: ENTRESTO PO SCH ×3 (10:00→21:43)
[2021-03-04] MEDS: DexAMETHasone SOD PHOS 10MG/1ML VIAL INJ IV SCH (10:22)
[2021-03-04] MEDS: FUROSEMIDE 20 MG/2 ML VIAL IV SCH (10:22)
[2021-03-04] MEDS: FAMOTIDINE (10MG/ML) 2ML VL IV SCH (10:23)
[2021-03-04] MEDS: CLOPIDOGREL BISULFATE 75 MG TAB PO SCH (10:24)
[2021-03-04] MEDS: ZINC SULFATE 220mg CAP or TAB PO SCH (10:24)
[2021-03-04] MEDS: MULTIPLE VITAMIN TAB PO SCH (10:24)
[2021-03-04] MEDS: ASCORBIC ACID 1,000 MG TAB PO SCH (10:24)
[2021-03-04] MEDS: CHOLECALCIFEROL (VITD3) 2,000 UNIT CAP/TAB PO SCH (10:25)
[2021-03-04] MEDS: AZITHROMYCIN 250 MG TAB PO SCH (10:25)
[2021-03-04] MEDS: ENOXAPARIN SOD 40 MG/0.4 ML SYRINGE SC SCH ×2 (10:25→21:43)
[2021-03-04] MEDS ORDERED: PATIENTS OWN MEDICATION INJ SCH (11:45)
[2021-03-04] MEDS ORDERED: POM INJ (11:58)
[2021-03-04] MEDS ORDERED: PRALUENT 75 MG/ML INJ SCH (12:00)
[2021-03-04 13:00] VITALS: BP 96/50
[2021-03-04] MEDS: SODIUM CHLOR 0.9% PF (SALINE LOCK) 10ML VIAL/SYR IV SCH ×2 (14:11→21:44)
[2021-03-04] MEDS: PRALUENT 75 MG/ML SC SCH (14:11)
[2021-03-04 16:36] VITALS: BP 98/63
[2021-03-04 22:00] VITALS: BP 101/60
[2021-03-05] MEDS: guaiFENesin-DM 100/10mg/5ml SYR PO PRN (01:00)
[2021-03-05 05:00] VITALS: BP 96/78
[2021-03-05 05:57] LABS: Basophils # (auto) 0.1 10 ^3/uL (0-0.2); Basophils % (auto) 0.4 % (0.0-2.0); Eosinophils # (auto) 0 10 ^3/uL (0-0.8); Hematocrit 38.7 % (36.0-46.0); Hemoglobin 12.7 g/dL (12.2-16.2); Lymphocytes # (auto) 0.5 10 ^3/uL (0.4-5.4); Mean Corpuscular Hemoglobin 28.1 pg (28.0-32.0); Mean Corpuscular Hgb Conc. 32.9 g/dL (32.0-36.0); Mean Corpuscular Volume 85.4 fL (80.0-100.0); Monocytes # (auto) 0.5 10 ^3/uL (0-1.3); Monocytes % (auto) 3.7 % (0.0-12.0); Neutrophils # (auto) 12.3 10 ^3/uL (1.6-8.6); Neutrophils % (auto) 91.9 % (37.0-80.0); Red Blood Cells 4.53 10^6/uL (4.0-5.20); Red Cell Distribution Width 14.3 % (11.8-14.3); White Blood Cell 13.4 10^3/uL (4.4-10.8)
[2021-03-05] MEDS: SODIUM CHLOR 0.9% PF (SALINE LOCK) 10ML VIAL/SYR IV SCH ×3 (06:00→22:03)
[2021-03-05 06:24] LABS: Potassium 3.3 mmol/L (3.5-5.1)
[2021-03-05] MEDS: BUDESONIDE (INHALATION) 0.5 MG/2 ML NEB NEB SCH (06:41)
[2021-03-05 06:47] LABS: Albumin 2.2 g/dL (3.4-5.0); BUN/Creatinine Ratio 35.6; Bilirubin, Total 0.5 mg/dL (0.2-1.0); CRP High Sensitivity 10.3 mg/dL (< 0.3); Calcium 8.7 mg/dL (8.5-10.1); Total Protein 6.2 g/dL (6.4-8.2)
[2021-03-05] MEDS ORDERED: POTASSIUM CHL 20 Meq TABLET PO ONE (08:30)
[2021-03-05 09:22] VITALS: BP 106/63
[2021-03-05] MEDS: CHOLECALCIFEROL (VITD3) 2,000 UNIT CAP/TAB PO SCH (10:03)
[2021-03-05] MEDS: ENTRESTO PO SCH ×2 (10:03→22:03)
[2021-03-05] MEDS: FUROSEMIDE 20 MG/2 ML VIAL IV SCH (10:03)
[2021-03-05] MEDS: FAMOTIDINE (10MG/ML) 2ML VL IV SCH (10:03)
[2021-03-05] MEDS: CLOPIDOGREL BISULFATE 75 MG TAB PO SCH (10:03)
[2021-03-05] MEDS: MULTIPLE VITAMIN TAB PO SCH (10:03)
[2021-03-05] MEDS: ASCORBIC ACID 1,000 MG TAB PO SCH (10:03)
[2021-03-05] MEDS: ZINC SULFATE 220mg CAP or TAB PO SCH (10:03)
[2021-03-05] MEDS: DexAMETHasone SOD PHOS 10MG/1ML VIAL INJ IV SCH (10:03)
[2021-03-05] MEDS: ASPirin 81 mg TAB PO SCH (10:03)
[2021-03-05] MEDS: ENOXAPARIN SOD 40 MG/0.4 ML SYRINGE SC SCH ×2 (10:04→22:03)
[2021-03-05 12:44] VITALS: BP 109/66
[2021-03-05] MEDS ORDERED: dilTIAZem 120MG ER CAP PO ONE (13:30)
[2021-03-05 16:30] VITALS: BP 137/79
[2021-03-05 22:00] VITALS: BP 111/64
[2021-03-05] MEDS: ALBUTEROL SULF HFA 90MCG INH 200DOSE IN PRN (22:23)
[2021-03-06 05:00] VITALS: BP 105/61
[2021-03-06 06:58] LABS: Basophils # (auto) 0 10 ^3/uL (0-0.2); Basophils % (auto) 0.2 % (0.0-2.0); Eosinophils # (auto) 0 10 ^3/uL (0-0.8); Hematocrit 35.9 % (36.0-46.0); Hemoglobin 12.1 g/dL (12.2-16.2); Lymphocytes # (auto) 0.4 10 ^3/uL (0.4-5.4); Lymphocytes % (auto) 3.1 % (10.0-50.0); Mean Corpuscular Hemoglobin 28.7 pg (28.0-32.0); Mean Corpuscular Hgb Conc. 33.7 g/dL (32.0-36.0); Mean Corpuscular Volume 85.2 fL (80.0-100.0); Monocytes # (auto) 0.5 10 ^3/uL (0-1.3); Monocytes % (auto) 3.8 % (0.0-12.0); Neutrophils # (auto) 12.4 10 ^3/uL (1.6-8.6); Neutrophils % (auto) 92.9 % (37.0-80.0); Red Blood Cells 4.21 10^6/uL (4.0-5.20); Red Cell Distribution Width 14.2 % (11.8-14.3); White Blood Cell 13.4 10^3/uL (4.4-10.8)
[2021-03-06 07:14] LABS: Potassium 3.4 mmol/L (3.5-5.1)
[2021-03-06] MEDS: ALBUTEROL SULF HFA 90MCG INH 200DOSE IN PRN ×2 (07:22→20:48)
[2021-03-06 07:27] LABS: Albumin 2.1 g/dL (3.4-5.0); BUN/Creatinine Ratio 36.2; Bilirubin, Total 0.5 mg/dL (0.2-1.0); Calcium 8.6 mg/dL (8.5-10.1); Magnesium 2.6 mg/dL (1.6-2.6); Total Protein 6.1 g/dL (6.4-8.2)
[2021-03-06 09:00] VITALS: BP 95/69
[2021-03-06] MEDS: FUROSEMIDE 20 MG/2 ML VIAL IV SCH (10:00)
[2021-03-06] MEDS: SODIUM CHLOR 0.9% PF (SALINE LOCK) 10ML VIAL/SYR IV SCH ×3 (10:01→21:51)
[2021-03-06] MEDS: DexAMETHasone SOD PHOS 10MG/1ML VIAL INJ IV SCH (10:01)
[2021-03-06] MEDS: dilTIAZem 120MG ER CAP PO SCH (10:02)
[2021-03-06] MEDS: FAMOTIDINE (10MG/ML) 2ML VL IV SCH (10:02)
[2021-03-06] MEDS: ENTRESTO PO SCH ×2 (10:02→22:00)
[2021-03-06] MEDS: ENOXAPARIN SOD 40 MG/0.4 ML SYRINGE SC SCH ×2 (10:02→21:57)
[2021-03-06] MEDS: CLOPIDOGREL BISULFATE 75 MG TAB PO SCH (10:02)
[2021-03-06] MEDS: ASCORBIC ACID 1,000 MG TAB PO SCH (10:02)
[2021-03-06] MEDS: ASPirin 81 mg TAB PO SCH (10:02)
[2021-03-06] MEDS: CHOLECALCIFEROL (VITD3) 2,000 UNIT CAP/TAB PO SCH (10:02)
[2021-03-06] MEDS: MULTIPLE VITAMIN TAB PO SCH (10:02)
[2021-03-06] MEDS: ZINC SULFATE 220mg CAP or TAB PO SCH (10:02)
[2021-03-06 12:42] VITALS: BP 91/60
[2021-03-06 17:00] VITALS: BP 93/61
[2021-03-06] MEDS: guaiFENesin-DM 100/10mg/5ml SYR PO PRN (21:57)
[2021-03-06 22:00] VITALS: BP 83/63
[2021-03-06 22:30] VITALS: BP 95/69
[2021-03-07 05:00] VITALS: BP 91/61
[2021-03-07] MEDS: SODIUM CHLOR 0.9% PF (SALINE LOCK) 10ML VIAL/SYR IV SCH ×3 (05:38→22:03)
[2021-03-07] MEDS: ALBUTEROL SULF HFA 90MCG INH 200DOSE IN PRN ×2 (07:57→21:21)
[2021-03-07 09:00] VITALS: BP 111/55
[2021-03-07] MEDS: guaiFENesin-DM 100/10mg/5ml SYR PO PRN ×2 (09:33→22:10)
[2021-03-07] MEDS: FAMOTIDINE (10MG/ML) 2ML VL IV SCH (10:02)
[2021-03-07] MEDS: ASPirin 81 mg TAB PO SCH (10:02)
[2021-03-07] MEDS: MULTIPLE VITAMIN TAB PO SCH (10:03)
[2021-03-07] MEDS: ZINC SULFATE 220mg CAP or TAB PO SCH (10:03)
[2021-03-07] MEDS: dilTIAZem 120MG ER CAP PO SCH (10:03)
[2021-03-07] MEDS: ASCORBIC ACID 1,000 MG TAB PO SCH (10:04)
[2021-03-07] MEDS: ENOXAPARIN SOD 40 MG/0.4 ML SYRINGE SC SCH ×2 (10:04→22:03)
[2021-03-07] MEDS: CLOPIDOGREL BISULFATE 75 MG TAB PO SCH (10:04)
[2021-03-07] MEDS: CHOLECALCIFEROL (VITD3) 2,000 UNIT CAP/TAB PO SCH (10:04)
[2021-03-07] MEDS: DexAMETHasone SOD PHOS 10MG/1ML VIAL INJ IV SCH (10:15)
[2021-03-07 13:00] VITALS: BP 114/76
[2021-03-07] MEDS ORDERED: metroNIDAZOLE 500 MG TAB PO SCH (14:00)
[2021-03-07] MEDS ORDERED: VANCOMYCIN HCL 125MG/5ML ORAL SOL GT ONE (15:30)
[2021-03-07 17:00] VITALS: BP 107/68
[2021-03-07] MEDS: VANCOMYCIN HCL 125MG/5ML ORAL SOL PO SCH ×2 (18:36→22:03)
[2021-03-07 22:00] VITALS: BP 149/62
[2021-03-08 05:26] VITALS: BP 127/74
[2021-03-08] MEDS: VANCOMYCIN HCL 125MG/5ML ORAL SOL PO SCH ×4 (05:39→22:32)
[2021-03-08] MEDS: SODIUM CHLOR 0.9% PF (SALINE LOCK) 10ML VIAL/SYR IV SCH ×3 (05:39→22:32)
[2021-03-08] MEDS: ALBUTEROL SULF HFA 90MCG INH 200DOSE IN PRN (06:10)
[2021-03-08 07:56] LABS: Basophils # (auto) 0 10 ^3/uL (0-0.2); Basophils % (auto) 0.1 % (0.0-2.0); Eosinophils # (auto) 0 10 ^3/uL (0-0.8); Hematocrit 38.6 % (36.0-46.0); Hemoglobin 12.9 g/dL (12.2-16.2); Lymphocytes # (auto) 0.3 10 ^3/uL (0.4-5.4); Mean Corpuscular Hemoglobin 28.9 pg (28.0-32.0); Mean Corpuscular Hgb Conc. 33.3 g/dL (32.0-36.0); Mean Corpuscular Volume 86.7 fL (80.0-100.0); Monocytes # (auto) 0.3 10 ^3/uL (0-1.3); Monocytes % (auto) 1.8 % (0.0-12.0); Neutrophils # (auto) 14.9 10 ^3/uL (1.6-8.6); Neutrophils % (auto) 96.1 % (37.0-80.0); Red Blood Cells 4.45 10^6/uL (4.0-5.20); Red Cell Distribution Width 14.2 % (11.8-14.3); White Blood Cell 15.5 10^3/uL (4.4-10.8)
[2021-03-08 08:09] LABS: BUN/Creatinine Ratio 42.1; Calcium 9.2 mg/dL (8.5-10.1); Potassium 3.9 mmol/L (3.5-5.1)
[2021-03-08 09:00] VITALS: BP 125/88
[2021-03-08 13:00] VITALS: BP_SYST 100; BP_SYST 121; BP_DIAS 68; BP_DIAS 92
[2021-03-08] MEDS: FAMOTIDINE (10MG/ML) 2ML VL IV SCH (14:47)
[2021-03-08] MEDS: ASPirin 81 mg TAB PO SCH (14:48)
[2021-03-08] MEDS: MULTIPLE VITAMIN TAB PO SCH (14:48)
[2021-03-08] MEDS: dilTIAZem 120MG ER CAP PO SCH (14:48)
[2021-03-08] MEDS: ZINC SULFATE 220mg CAP or TAB PO SCH (14:48)
[2021-03-08] MEDS: CHOLECALCIFEROL (VITD3) 2,000 UNIT CAP/TAB PO SCH (14:49)
[2021-03-08] MEDS: ASCORBIC ACID 1,000 MG TAB PO SCH (14:49)
[2021-03-08] MEDS: CLOPIDOGREL BISULFATE 75 MG TAB PO SCH (14:49)
[2021-03-08] MEDS: ENOXAPARIN SOD 40 MG/0.4 ML SYRINGE SC SCH ×2 (14:49→22:31)
[2021-03-08] MEDS: guaiFENesin-DM 100/10mg/5ml SYR PO PRN ×2 (15:04→23:36)
[2021-03-08 17:00] VITALS: BP 126/88
[2021-03-08 22:00] VITALS: BP 133/73
[2021-03-09 05:00] VITALS: BP 110/90
[2021-03-09] MEDS: SODIUM CHLOR 0.9% PF (SALINE LOCK) 10ML VIAL/SYR IV SCH ×3 (05:37→21:57)
[2021-03-09] MEDS: VANCOMYCIN HCL 125MG/5ML ORAL SOL PO SCH ×4 (05:37→21:57)
[2021-03-09] MEDS: ALBUTEROL SULF HFA 90MCG INH 200DOSE IN PRN ×2 (06:11→21:17)
[2021-03-09 09:00] VITALS: BP 115/69
[2021-03-09] MEDS: ZINC SULFATE 220mg CAP or TAB PO SCH (10:06)
[2021-03-09] MEDS: ASPirin 81 mg TAB PO SCH (10:06)
[2021-03-09] MEDS: FAMOTIDINE (10MG/ML) 2ML VL IV SCH (10:06)
[2021-03-09] MEDS: FLORASTOR (S. BOULARDII) 250 MG CAP PO SCH ×2 (10:07→21:56)
[2021-03-09] MEDS: dilTIAZem 120MG ER CAP PO SCH (10:07)
[2021-03-09] MEDS: MULTIPLE VITAMIN TAB PO SCH (10:08)
[2021-03-09] MEDS: ENOXAPARIN SOD 40 MG/0.4 ML SYRINGE SC SCH ×2 (10:08→21:56)
[2021-03-09] MEDS: CHOLECALCIFEROL (VITD3) 2,000 UNIT CAP/TAB PO SCH (10:08)
[2021-03-09] MEDS: CLOPIDOGREL BISULFATE 75 MG TAB PO SCH (10:08)
[2021-03-09] MEDS: ASCORBIC ACID 1,000 MG TAB PO SCH (10:08)
[2021-03-09 13:00] VITALS: BP 121/74
[2021-03-09 17:00] VITALS: BP 117/74
[2021-03-09] MEDS: guaiFENesin-DM 100/10mg/5ml SYR PO PRN (20:52)
[2021-03-09 22:00] VITALS: BP 131/82
[2021-03-10 05:00] VITALS: BP 120/58
[2021-03-10] MEDS: VANCOMYCIN HCL 125MG/5ML ORAL SOL PO SCH ×4 (05:59→20:49)
[2021-03-10] MEDS: SODIUM CHLOR 0.9% PF (SALINE LOCK) 10ML VIAL/SYR IV SCH ×3 (05:59→20:48)
[2021-03-10] MEDS: ALBUTEROL SULF HFA 90MCG INH 200DOSE IN PRN (06:41)
[2021-03-10 07:18] LABS: Basophils # (auto) 0 10 ^3/uL (0-0.2); Basophils % (auto) 0.1 % (0.0-2.0); Eosinophils # (auto) 0.1 10 ^3/uL (0-0.8); Eosinophils % (auto) 0.6 % (0.0-7.0); Hematocrit 35.2 % (36.0-46.0); Hemoglobin 11.9 g/dL (12.2-16.2); Lymphocytes # (auto) 0.2 10 ^3/uL (0.4-5.4); Lymphocytes % (auto) 2.3 % (10.0-50.0); Mean Corpuscular Hemoglobin 29.1 pg (28.0-32.0); Mean Corpuscular Hgb Conc. 33.7 g/dL (32.0-36.0); Mean Corpuscular Volume 86.2 fL (80.0-100.0); Monocytes # (auto) 0.3 10 ^3/uL (0-1.3); Monocytes % (auto) 2.5 % (0.0-12.0); Neutrophils # (auto) 9.9 10 ^3/uL (1.6-8.6); Neutrophils % (auto) 94.5 % (37.0-80.0); Red Blood Cells 4.09 10^6/uL (4.0-5.20); Red Cell Distribution Width 14.2 % (11.8-14.3); White Blood Cell 10.5 10^3/uL (4.4-10.8)
[2021-03-10 07:31] LABS: Chloride 110 mmol/L (98-107); Potassium 3.8 mmol/L (3.5-5.1); Sodium 143 mmol/L (136-145)
[2021-03-10 07:49] LABS: Alanine Aminotransferase 29 U/L (13-56); Albumin 1.7 g/dL (3.4-5.0); Alkaline Phosphatase 102 U/L (45-117); Anion Gap 4 (5-15); Aspartate Aminotransferase 39 U/L (15-37); BUN/Creatinine Ratio 33.6; Bilirubin, Total 0.6 mg/dL (0.2-1.0); Blood Urea Nitrogen 39 mg/dL (7-18); Calcium 8.6 mg/dL (8.5-10.1); Carbon Dioxide 29 mmol/L (21-32); GFR African American 59 mL/min; GFR Non-African American 49 mL/min; Glucose 113 mg/dL (74-106); Magnesium 2.6 mg/dL (1.6-2.6); Phosphorus 3.2 mg/dL (2.5-4.90)
[2021-03-10 08:16] LABS: CRP High Sensitivity > 19.0 mg/dL (< 0.3)
[2021-03-10 09:00] VITALS: BP 121/86
[2021-03-10] MEDS: ASPirin 81 mg TAB PO SCH (10:00)
[2021-03-10] MEDS: FAMOTIDINE (10MG/ML) 2ML VL IV SCH (10:00)
[2021-03-10] MEDS: FLORASTOR (S. BOULARDII) 250 MG CAP PO SCH ×2 (10:01→20:49)
[2021-03-10] MEDS: ZINC SULFATE 220mg CAP or TAB PO SCH (10:01)
[2021-03-10] MEDS: dilTIAZem 120MG ER CAP PO SCH (10:01)
[2021-03-10] MEDS: MULTIPLE VITAMIN TAB PO SCH (10:02)
[2021-03-10] MEDS: CHOLECALCIFEROL (VITD3) 2,000 UNIT CAP/TAB PO SCH (10:02)
[2021-03-10] MEDS: CLOPIDOGREL BISULFATE 75 MG TAB PO SCH (10:02)
[2021-03-10] MEDS: ASCORBIC ACID 1,000 MG TAB PO SCH (10:02)
[2021-03-10] MEDS: ENOXAPARIN SOD 40 MG/0.4 ML SYRINGE SC SCH ×2 (10:02→20:49)
[2021-03-10] MEDS ORDERED: FUROSEMIDE 20 MG/2 ML VIAL IV ONE (10:30)
[2021-03-10 13:00] VITALS: BP 135/99
[2021-03-10 17:00] VITALS: BP 97/68
[2021-03-10] MEDS: guaiFENesin-DM 100/10mg/5ml SYR PO PRN (20:49)
[2021-03-10 22:00] VITALS: BP 125/72
[2021-03-11] MEDS: guaiFENesin-DM 100/10mg/5ml SYR PO PRN (02:12)
[2021-03-11 05:00] VITALS: BP 131/68
[2021-03-11] MEDS: SODIUM CHLOR 0.9% PF (SALINE LOCK) 10ML VIAL/SYR IV SCH ×3 (05:43→21:07)
[2021-03-11] MEDS: VANCOMYCIN HCL 125MG/5ML ORAL SOL PO SCH ×4 (05:43→21:07)
[2021-03-11] MEDS: ALBUTEROL SULF HFA 90MCG INH 200DOSE IN PRN ×2 (06:23→22:26)
[2021-03-11 09:00] VITALS: BP 117/72
[2021-03-11] MEDS: FUROSEMIDE 20 MG/2 ML VIAL IV SCH (10:05)
[2021-03-11] MEDS: FAMOTIDINE (10MG/ML) 2ML VL IV SCH (10:05)
[2021-03-11] MEDS: dilTIAZem 120MG ER CAP PO SCH (10:06)
[2021-03-11] MEDS: FLORASTOR (S. BOULARDII) 250 MG CAP PO SCH ×2 (10:06→21:07)
[2021-03-11] MEDS: ASPirin 81 mg TAB PO SCH (10:06)
[2021-03-11] MEDS: ZINC SULFATE 220mg CAP or TAB PO SCH (10:06)
[2021-03-11] MEDS: MULTIPLE VITAMIN TAB PO SCH (10:06)
[2021-03-11] MEDS: ENOXAPARIN SOD 40 MG/0.4 ML SYRINGE SC SCH ×2 (10:07→21:08)
[2021-03-11] MEDS: CLOPIDOGREL BISULFATE 75 MG TAB PO SCH (10:07)
[2021-03-11] MEDS: ASCORBIC ACID 1,000 MG TAB PO SCH (10:07)
[2021-03-11] MEDS: CHOLECALCIFEROL (VITD3) 2,000 UNIT CAP/TAB PO SCH (10:07)
[2021-03-11 13:00] VITALS: BP 106/63
[2021-03-11 16:49] VITALS: BP 101/67
[2021-03-11 22:00] VITALS: BP 109/60
[2021-03-12] VITALS (60 sets, daily range): BP systolic 84–132; BP diastolic 42–82
[2021-03-12] MEDS: SODIUM CHLOR 0.9% PF (SALINE LOCK) 10ML VIAL/SYR IV SCH ×3 (06:41→21:05)
[2021-03-12] MEDS: VANCOMYCIN HCL 125MG/5ML ORAL SOL PO SCH ×4 (06:42→21:27)
[2021-03-12] MEDS: ASPirin 81 mg TAB PO SCH (09:31)
[2021-03-12] MEDS: FAMOTIDINE (10MG/ML) 2ML VL IV SCH (09:31)
[2021-03-12] MEDS: MULTIPLE VITAMIN TAB PO SCH (09:31)
[2021-03-12] MEDS: ZINC SULFATE 220mg CAP or TAB PO SCH (09:31)
[2021-03-12] MEDS: FLORASTOR (S. BOULARDII) 250 MG CAP PO SCH ×2 (09:31→21:05)
[2021-03-12] MEDS: CLOPIDOGREL BISULFATE 75 MG TAB PO SCH (09:32)
[2021-03-12] MEDS: ENOXAPARIN SOD 40 MG/0.4 ML SYRINGE SC SCH ×2 (09:32→21:05)
[2021-03-12] MEDS: ASCORBIC ACID 1,000 MG TAB PO SCH (09:32)
[2021-03-12] MEDS: CHOLECALCIFEROL (VITD3) 2,000 UNIT CAP/TAB PO SCH (09:32)
[2021-03-12] MEDS: ALBUTEROL SULF HFA 90MCG INH 200DOSE IN PRN (09:35)
[2021-03-12] MEDS: FUROSEMIDE 20 MG/2 ML VIAL IV SCH (10:00)
[2021-03-12] MEDS: dilTIAZem 120MG ER CAP PO SCH (10:00)
[2021-03-12] MEDS ORDERED: ROCURONIUM 10MG/ML 10ML VIAL IV ONE (10:43)
[2021-03-12] MEDS ORDERED: SUCCINYLCHOLINE CHLORIDE 20 MG/ML 10ML VIAL IV ONE (10:43)
[2021-03-12] MEDS ORDERED: ETOMIDATE (2MG/ML) 20ML VIAL IV ONE (10:43)
[2021-03-12] MEDS ORDERED: MIDAZOLAM DRIP 50 mg/50mL 50 ML IV ONE (10:52)
[2021-03-12] MEDS: MIDAZOLAM DRIP 50 mg/50mL 50 ML IV SCH ×3 (11:32→21:28)
[2021-03-12] MEDS: NOREPINEPHRINE 8 MG/250ML KIT 250 ML IV SCH (13:00)
[2021-03-12] MEDS: fentaNYL Drip 2500mCg/250mlNS 250 ML IV SCH ×2 (13:00→19:00)
[2021-03-12] MEDS: PROPOFOL 100 ML IV SCH (13:00)
[2021-03-12 14:41] LABS: Basophils # (auto) 0 10 ^3/uL (0-0.2); Basophils % (auto) 0.4 % (0.0-2.0); Eosinophils # (auto) 0 10 ^3/uL (0-0.8); Eosinophils % (auto) 0.2 % (0.0-7.0); Hematocrit 31.9 % (36.0-46.0); Hemoglobin 10.8 g/dL (12.2-16.2); Lymphocytes # (auto) 0.3 10 ^3/uL (0.4-5.4); Lymphocytes % (auto) 2.6 % (10.0-50.0); Mean Corpuscular Hemoglobin 29.1 pg (28.0-32.0); Mean Corpuscular Hgb Conc. 33.9 g/dL (32.0-36.0); Monocytes # (auto) 0.2 10 ^3/uL (0-1.3); Monocytes % (auto) 1.6 % (0.0-12.0); Neutrophils # (auto) 9.9 10 ^3/uL (1.6-8.6); Neutrophils % (auto) 95.2 % (37.0-80.0); Red Blood Cells 3.71 10^6/uL (4.0-5.20); Red Cell Distribution Width 14.3 % (11.8-14.3); White Blood Cell 10.4 10^3/uL (4.4-10.8)
[2021-03-12 14:58] LABS: INR 1.65 (0.9-1.15)
[2021-03-12 15:04] LABS: Calcium 8.3 mg/dL (8.5-10.1); Potassium 3.5 mmol/L (3.5-5.1)
[2021-03-12 15:06] LABS: BUN/Creatinine Ratio 35.1
[2021-03-12] MEDS: ALBUTEROL SULF 2.5 MG/0.5ML(0.5%) NEB SOLN NEB PRN (21:05)
[2021-03-12] MEDS: BUDESONIDE (INHALATION) 0.5 MG/2 ML NEB NEB SCH (21:05)
[2021-03-13] VITALS (87 sets, daily range): BP systolic 72–153; BP diastolic 41–86
[2021-03-13] MEDS: ACETAMINOPHEN 500 MG TAB PO PRN (01:24)
[2021-03-13] MEDS: MIDAZOLAM DRIP 50 mg/50mL 50 ML IV SCH ×2 (01:25→05:23)
[2021-03-13] MEDS: PROPOFOL 100 ML IV SCH ×3 (01:26→12:49)
[2021-03-13 05:21] LABS: Basophils # (auto) 0.1 10 ^3/uL (0-0.2); Basophils % (auto) 0.3 % (0.0-2.0); Eosinophils # (auto) 0.2 10 ^3/uL (0-0.8); Hemoglobin 11.4 g/dL (12.2-16.2); Lymphocytes # (auto) 0.4 10 ^3/uL (0.4-5.4); Lymphocytes % (auto) 2.4 % (10.0-50.0); Mean Corpuscular Hemoglobin 28.7 pg (28.0-32.0); Mean Corpuscular Hgb Conc. 32.5 g/dL (32.0-36.0); Mean Corpuscular Volume 88.2 fL (80.0-100.0); Monocytes # (auto) 0.2 10 ^3/uL (0-1.3); Monocytes % (auto) 1.4 % (0.0-12.0); Neutrophils # (auto) 15.6 10 ^3/uL (1.6-8.6); Neutrophils % (auto) 94.9 % (37.0-80.0); Red Blood Cells 3.97 10^6/uL (4.0-5.20); Red Cell Distribution Width 14.5 % (11.8-14.3); White Blood Cell 16.5 10^3/uL (4.4-10.8)
[2021-03-13] MEDS: SODIUM CHLOR 0.9% PF (SALINE LOCK) 10ML VIAL/SYR IV SCH ×3 (05:22→22:00)
[2021-03-13] MEDS: VANCOMYCIN HCL 125MG/5ML ORAL SOL PO SCH ×4 (05:22→22:00)
[2021-03-13 05:39] LABS: Calcium 8.1 mg/dL (8.5-10.1); Chloride 108 mmol/L (98-107); Potassium 3.5 mmol/L (3.5-5.1); Sodium 142 mmol/L (136-145)
[2021-03-13 05:55] LABS: Alanine Aminotransferase 25 U/L (13-56); Albumin 1.3 g/dL (3.4-5.0); Alkaline Phosphatase 160 U/L (45-117); Anion Gap 7 (5-15); Aspartate Aminotransferase 34 U/L (15-37); BUN/Creatinine Ratio 36.8; Bilirubin, Total 0.7 mg/dL (0.2-1.0); Blood Urea Nitrogen 43 mg/dL (7-18); Carbon Dioxide 27 mmol/L (21-32); GFR African American 58 mL/min; GFR Non-African American 48 mL/min; Glucose 142 mg/dL (74-106); Total Protein 5.3 g/dL (6.4-8.2)
[2021-03-13 06:13] LABS: CRP High Sensitivity > 19.0 mg/dL (< 0.3)
[2021-03-13] MEDS: BUDESONIDE (INHALATION) 0.5 MG/2 ML NEB NEB SCH ×2 (06:37→22:02)
[2021-03-13] MEDS: ALBUTEROL SULF 2.5 MG/0.5ML(0.5%) NEB SOLN NEB PRN ×2 (06:37→22:01)
[2021-03-13] MEDS: dilTIAZem 120MG ER CAP PO SCH (07:27)
[2021-03-13] MEDS: FUROSEMIDE 20 MG/2 ML VIAL IV SCH (07:29)
[2021-03-13] MEDS: ASPirin 81 mg TAB PO SCH ×2 (09:31→10:03)
[2021-03-13] MEDS: ZINC SULFATE 220mg CAP or TAB PO SCH ×2 (09:31→10:03)
[2021-03-13] MEDS: MULTIPLE VITAMIN TAB PO SCH ×2 (09:31→10:04)
[2021-03-13] MEDS: ASCORBIC ACID 1,000 MG TAB PO SCH ×2 (09:31→10:04)
[2021-03-13] MEDS: FAMOTIDINE (10MG/ML) 2ML VL IV SCH ×2 (09:31→10:03)
[2021-03-13] MEDS: ENOXAPARIN SOD 40 MG/0.4 ML SYRINGE SC SCH ×3 (09:31→22:00)
[2021-03-13] MEDS: FLORASTOR (S. BOULARDII) 250 MG CAP PO SCH ×3 (09:31→22:00)
[2021-03-13] MEDS: DexAMETHasone SOD PHOS 10MG/1ML VIAL INJ IV SCH ×2 (09:31→10:02)
[2021-03-13] MEDS: CHOLECALCIFEROL (VITD3) 2,000 UNIT CAP/TAB PO SCH ×2 (09:31→10:04)
[2021-03-13] MEDS: CLOPIDOGREL BISULFATE 75 MG TAB PO SCH ×2 (09:31→10:04)
[2021-03-13] MEDS: NOREPINEPHRINE 8 MG/250ML KIT 250 ML IV SCH ×2 (11:08→22:40)
[2021-03-13] MEDS: fentaNYL Drip 2500mCg/250mlNS 250 ML IV SCH (12:51)
[2021-03-13 15:53] LABS: Urine Bacteria MOD /hpf (None Seen); Urine Blood 2+ /uL (Negative); Urine Mucus FEW (None Seen); Urine Specific Gravity 1.018 (1.001-1.035); Urine WBC 457 /hpf (0 - 5)
[2021-03-13] MEDS: AZTREONAM 1GM INJ 1 GM in D5W 5% 50 ML IV SCH (18:00)
[2021-03-13] MEDS ORDERED: dilTIAZem 25 MG/5 ML VIAL IV ONE ×3 (22:44→22:59)
[2021-03-13] MEDS: dilTIAZem 125mg/125ml BAG KIT 125 ML IV SCH (23:15)
[2021-03-14] VITALS (102 sets, daily range): BP systolic 87–129; BP diastolic 39–74
[2021-03-14] MEDS: MIDAZOLAM DRIP 50 mg/50mL 50 ML IV SCH (01:00)
[2021-03-14] MEDS: AZTREONAM 1GM INJ 1 GM in D5W 5% 50 ML IV SCH ×3 (02:24→18:24)
[2021-03-14] MEDS: NOREPINEPHRINE 8 MG/250ML KIT 250 ML IV SCH ×3 (03:01→17:01)
[2021-03-14 04:20] LABS: Creatinine, Urine 89.6 mg/dL (30.0-125.0)
[2021-03-14] MEDS: SODIUM CHLOR 0.9% PF (SALINE LOCK) 10ML VIAL/SYR IV SCH ×3 (05:00→21:25)
[2021-03-14] MEDS: dilTIAZem 125mg/125ml BAG KIT 125 ML IV SCH ×2 (05:00→13:10)
[2021-03-14] MEDS: VANCOMYCIN HCL 125MG/5ML ORAL SOL PO SCH ×3 (05:01→21:25)
[2021-03-14 05:14] LABS: Basophils # (auto) 0.1 10 ^3/uL (0-0.2); Basophils % (auto) 0.6 % (0.0-2.0); Eosinophils # (auto) 0 10 ^3/uL (0-0.8); Hematocrit 39.9 % (36.0-46.0); Hemoglobin 12.4 g/dL (12.2-16.2); Lymphocytes # (auto) 0.4 10 ^3/uL (0.4-5.4); Mean Corpuscular Hemoglobin 28.3 pg (28.0-32.0); Mean Corpuscular Hgb Conc. 31.1 g/dL (32.0-36.0); Mean Corpuscular Volume 91.1 fL (80.0-100.0); Monocytes # (auto) 0.5 10 ^3/uL (0-1.3); Monocytes % (auto) 2.3 % (0.0-12.0); Neutrophils # (auto) 20.2 10 ^3/uL (1.6-8.6); Neutrophils % (auto) 95.1 % (37.0-80.0); Nucleated Red Blood Cells % 0.1 %; Red Blood Cells 4.38 10^6/uL (4.0-5.20); Red Cell Distribution Width 15.5 % (11.8-14.3); White Blood Cell 21.3 10^3/uL (4.4-10.8)
[2021-03-14] MEDS: PROPOFOL 100 ML IV SCH ×3 (05:30→10:32)
[2021-03-14 05:33] LABS: Calcium 7.8 mg/dL (8.5-10.1); Potassium 4.1 mmol/L (3.5-5.1)
[2021-03-14 05:36] LABS: BUN/Creatinine Ratio 30.2
[2021-03-14] MEDS: BUDESONIDE (INHALATION) 0.5 MG/2 ML NEB NEB SCH ×2 (06:05→22:09)
[2021-03-14] MEDS: ALBUTEROL SULF 2.5 MG/0.5ML(0.5%) NEB SOLN NEB PRN ×2 (06:05→22:09)
[2021-03-14] MEDS: dilTIAZem 120MG ER CAP PO SCH (07:45)
[2021-03-14] MEDS: FUROSEMIDE 20 MG/2 ML VIAL IV SCH (07:59)
[2021-03-14] MEDS: FLORASTOR (S. BOULARDII) 250 MG CAP PO SCH ×2 (08:01→21:26)
[2021-03-14] MEDS: DexAMETHasone SOD PHOS 10MG/1ML VIAL INJ IV SCH (09:25)
[2021-03-14] MEDS: ENOXAPARIN SOD 40 MG/0.4 ML SYRINGE SC SCH ×2 (09:26→21:25)
[2021-03-14] MEDS: ZINC SULFATE 220mg CAP or TAB PO SCH (09:26)
[2021-03-14] MEDS: FAMOTIDINE (10MG/ML) 2ML VL IV SCH (09:26)
[2021-03-14] MEDS: CHOLECALCIFEROL (VITD3) 2,000 UNIT CAP/TAB PO SCH (09:26)
[2021-03-14] MEDS: ASPirin 81 mg TAB PO SCH (09:26)
[2021-03-14] MEDS: CLOPIDOGREL BISULFATE 75 MG TAB PO SCH (09:26)
[2021-03-14] MEDS: MULTIPLE VITAMIN TAB PO SCH (09:26)
[2021-03-14] MEDS: ASCORBIC ACID 1,000 MG TAB PO SCH (09:26)
[2021-03-14] MEDS ORDERED: D5W/SOD CHLO 0.9% 1,000 ML IV SCH (11:15)
[2021-03-14] MEDS: SODIUM BICARBONATE 50ML VIAL 75 ML in D5W 5% 1,000 ML IV SCH ×3 (13:20→23:49)
[2021-03-14] MEDS: fentaNYL Drip 2500mCg/250mlNS 250 ML IV SCH (13:28)
[2021-03-15] VITALS (102 sets, daily range): BP systolic 88–136; BP diastolic 38–72
[2021-03-15] MEDS: PROPOFOL 100 ML IV SCH ×4 (00:22→17:21)
[2021-03-15] MEDS: AZTREONAM 1GM INJ 1 GM in D5W 5% 50 ML IV SCH ×3 (02:32→19:59)
[2021-03-15] MEDS: NOREPINEPHRINE 8 MG/250ML KIT 250 ML IV SCH ×3 (03:21→17:28)
[2021-03-15 05:42] LABS: Hematocrit 32.4 % (36.0-46.0); Hemoglobin 10.6 g/dL (12.2-16.2); Mean Corpuscular Hemoglobin 28.8 pg (28.0-32.0); Mean Corpuscular Hgb Conc. 32.5 g/dL (32.0-36.0); Mean Corpuscular Volume 88.7 fL (80.0-100.0); Red Blood Cells 3.66 10^6/uL (4.0-5.20); Red Cell Distribution Width 14.6 % (11.8-14.3); White Blood Cell 15.6 10^3/uL (4.4-10.8)
[2021-03-15 05:51] LABS: Basophils % (manual) 0 (0.0-2.0); Blast Cells 0; Eosinophils % (manual) 0 (0-7); Metamyelocytes % 0; Myelocytes % 0; Promyelocytes % 0; Reactive Lymphocytes 0
[2021-03-15] MEDS: ALBUTEROL SULF 2.5 MG/0.5ML(0.5%) NEB SOLN NEB PRN (05:56)
[2021-03-15] MEDS: BUDESONIDE (INHALATION) 0.5 MG/2 ML NEB NEB SCH ×2 (05:56→22:00)
[2021-03-15] MEDS: SODIUM CHLOR 0.9% PF (SALINE LOCK) 10ML VIAL/SYR IV SCH ×3 (06:00→21:20)
[2021-03-15] MEDS: VANCOMYCIN HCL 125MG/5ML ORAL SOL PO SCH ×4 (06:00→22:00)
[2021-03-15 06:01] LABS: Albumin 1.2 g/dL (3.4-5.0); Calcium 7.5 mg/dL (8.5-10.1); Potassium 3.7 mmol/L (3.5-5.1)
[2021-03-15 06:11] LABS: Bilirubin, Total 0.2 mg/dL (0.2-1.0); CRP High Sensitivity 11.4 mg/dL (< 0.3); Total Protein 5.9 g/dL (6.4-8.2)
[2021-03-15 06:25] LABS: BUN/Creatinine Ratio 29.5
[2021-03-15 06:36] LABS: Band Neutrophils % (manual) 5; Lymphocytes % (manual) 1 (10.0-50.0); Monocytes % (manual) 2 (0-12)
[2021-03-15] MEDS: ASPirin 81 mg TAB PO SCH (09:25)
[2021-03-15] MEDS: DexAMETHasone SOD PHOS 10MG/1ML VIAL INJ IV SCH (09:25)
[2021-03-15] MEDS: FUROSEMIDE 20 MG/2 ML VIAL IV SCH (09:25)
[2021-03-15] MEDS: ENOXAPARIN SOD 40 MG/0.4 ML SYRINGE SC SCH (09:25)
[2021-03-15] MEDS: dilTIAZem 120MG ER CAP PO SCH (09:26)
[2021-03-15] MEDS: FLORASTOR (S. BOULARDII) 250 MG CAP PO SCH ×2 (09:26→21:20)
[2021-03-15] MEDS: ASCORBIC ACID 1,000 MG TAB PO SCH (09:27)
[2021-03-15] MEDS: ZINC SULFATE 220mg CAP or TAB PO SCH (09:27)
[2021-03-15] MEDS: CHOLECALCIFEROL (VITD3) 2,000 UNIT CAP/TAB PO SCH (09:27)
[2021-03-15] MEDS: MULTIPLE VITAMIN TAB PO SCH (09:27)
[2021-03-15] MEDS: CLOPIDOGREL BISULFATE 75 MG TAB PO SCH (09:27)
[2021-03-15] MEDS: MIDAZOLAM DRIP 50 mg/50mL 50 ML IV SCH (11:00)
[2021-03-15] MEDS: fentaNYL Drip 2500mCg/250mlNS 250 ML IV SCH ×2 (13:00→17:25)
[2021-03-15] MEDS: dilTIAZem 125mg/125ml BAG KIT 125 ML IV SCH (13:04)
[2021-03-15] MEDS: SODIUM BICARBONATE 50ML VIAL 75 ML in D5W 5% 1,000 ML IV SCH (16:06)
[2021-03-16] VITALS (98 sets, daily range): BP systolic 91–140; BP diastolic 47–73
[2021-03-16] MEDS: AZTREONAM 1GM INJ 1 GM in D5W 5% 50 ML IV SCH ×3 (02:00→17:27)
[2021-03-16] MEDS: dilTIAZem 125mg/125ml BAG KIT 125 ML IV SCH ×2 (03:00→19:01)
[2021-03-16] MEDS: SODIUM BICARBONATE 50ML VIAL 75 ML in D5W 5% 1,000 ML IV SCH ×2 (05:05→11:50)
[2021-03-16] MEDS: VANCOMYCIN HCL 125MG/5ML ORAL SOL PO SCH ×4 (05:05→22:00)
[2021-03-16] MEDS: SODIUM CHLOR 0.9% PF (SALINE LOCK) 10ML VIAL/SYR IV SCH ×3 (05:05→22:00)
[2021-03-16 05:18] LABS: Basophils # (auto) 0 10 ^3/uL (0-0.2); Basophils % (auto) 0.2 % (0.0-2.0); Eosinophils # (auto) 0 10 ^3/uL (0-0.8); Hematocrit 31.5 % (36.0-46.0); Hemoglobin 10.2 g/dL (12.2-16.2); Lymphocytes # (auto) 0.2 10 ^3/uL (0.4-5.4); Lymphocytes % (auto) 1.5 % (10.0-50.0); Mean Corpuscular Hemoglobin 28.4 pg (28.0-32.0); Mean Corpuscular Hgb Conc. 32.3 g/dL (32.0-36.0); Mean Corpuscular Volume 87.7 fL (80.0-100.0); Monocytes # (auto) 0.3 10 ^3/uL (0-1.3); Monocytes % (auto) 2.6 % (0.0-12.0); Neutrophils # (auto) 10.3 10 ^3/uL (1.6-8.6); Neutrophils % (auto) 95.7 % (37.0-80.0); Red Blood Cells 3.59 10^6/uL (4.0-5.20); Red Cell Distribution Width 14.8 % (11.8-14.3); White Blood Cell 10.8 10^3/uL (4.4-10.8)
[2021-03-16 05:35] LABS: Albumin 1.3 g/dL (3.4-5.0); BUN/Creatinine Ratio 41.4; Calcium 7.1 mg/dL (8.5-10.1)
[2021-03-16 05:37] LABS: Bilirubin, Total 0.2 mg/dL (0.2-1.0); Total Protein 5.1 g/dL (6.4-8.2)
[2021-03-16] MEDS: BUDESONIDE (INHALATION) 0.5 MG/2 ML NEB NEB SCH (06:27)
[2021-03-16] MEDS: ALBUTEROL SULF 2.5 MG/0.5ML(0.5%) NEB SOLN NEB PRN (06:27)
[2021-03-16] MEDS: PROPOFOL 100 ML IV SCH ×3 (06:42→22:35)
[2021-03-16] MEDS: MULTIPLE VITAMIN TAB PO SCH (09:58)
[2021-03-16] MEDS: ZINC SULFATE 220mg CAP or TAB PO SCH (09:58)
[2021-03-16] MEDS: ASCORBIC ACID 1,000 MG TAB PO SCH (09:58)
[2021-03-16] MEDS: FLORASTOR (S. BOULARDII) 250 MG CAP PO SCH ×2 (09:58→22:00)
[2021-03-16] MEDS: CHOLECALCIFEROL (VITD3) 2,000 UNIT CAP/TAB PO SCH (09:59)
[2021-03-16] MEDS: ASPirin 81 mg TAB PO SCH (09:59)
[2021-03-16] MEDS ORDERED: FAMOTIDINE (10MG/ML) 2ML VL IV SCH (10:00)
[2021-03-16] MEDS: CLOPIDOGREL BISULFATE 75 MG TAB PO SCH (10:00)
[2021-03-16] MEDS: dilTIAZem 120MG ER CAP PO SCH (10:00)
[2021-03-16] MEDS ORDERED: ENOXAPARIN SOD 40 MG/0.4 ML SYRINGE SC SCH (10:00)
[2021-03-16] MEDS: FUROSEMIDE 20 MG/2 ML VIAL IV SCH (10:00)
[2021-03-16] MEDS: DexAMETHasone SOD PHOS 10MG/1ML VIAL INJ IV SCH (10:01)
[2021-03-16] MEDS ORDERED: INSULIN LISPRO (HUMAN) 100 UNITS/ML ML SC ONE (10:30)
[2021-03-16] MEDS ORDERED: DEXTROSE (50%) 50ML SYRG IV PRN (10:30)
[2021-03-16] MEDS: MIDAZOLAM DRIP 50 mg/50mL 50 ML IV SCH (11:00)
[2021-03-16] MEDS: ACCU-CHEK COMFORT CURVE STRIP VI SCH ×3 (11:54→23:29)
[2021-03-16] MEDS: InsuLIN REG 1unit/0.01ml Soln (100units/ml) SC SCH ×3 (11:55→23:29)
[2021-03-16] MEDS ORDERED: AMIODARONE HCL 200 MG TAB NG ONE (14:15)
[2021-03-16] MEDS: NOREPINEPHRINE 8 MG/250ML KIT 250 ML IV SCH ×2 (16:03→16:24)
[2021-03-16] MEDS: ENOXAPARIN SOD 40 MG/0.4 ML SYRINGE SC SCH (22:00)
[2021-03-16] MEDS ORDERED: INSULIN LANTUS (GLARGINE) 1 /0.01ml (100units/ml) SC SCH (22:00)
[2021-03-16] MEDS: AMIODARONE HCL 200 MG TAB PO SCH (22:00)
[2021-03-17] VITALS (100 sets, daily range): BP systolic 89–144; BP diastolic 51–79
[2021-03-17] MEDS: dilTIAZem 125mg/125ml BAG KIT 125 ML IV SCH
[2021-03-17] MEDS: ALBUTEROL SULF 2.5 MG/0.5ML(0.5%) NEB SOLN NEB PRN ×2 (00:51→18:40)
[2021-03-17] MEDS: BUDESONIDE (INHALATION) 0.5 MG/2 ML NEB NEB SCH ×3 (00:51→18:40)
[2021-03-17] MEDS: AZTREONAM 1GM INJ 1 GM in D5W 5% 50 ML IV SCH ×3 (02:00→17:36)
[2021-03-17] MEDS: VANCOMYCIN HCL 125MG/5ML ORAL SOL PO SCH ×4 (04:37→20:34)
[2021-03-17] MEDS: SODIUM CHLOR 0.9% PF (SALINE LOCK) 10ML VIAL/SYR IV SCH ×3 (04:38→20:34)
[2021-03-17] MEDS: ACCU-CHEK COMFORT CURVE STRIP VI SCH ×3 (05:31→17:49)
[2021-03-17] MEDS: InsuLIN REG 1unit/0.01ml Soln (100units/ml) SC SCH ×3 (05:34→17:50)
[2021-03-17 05:38] LABS: Basophils # (auto) 0 10 ^3/uL (0-0.2); Basophils % (auto) 0.5 % (0.0-2.0); Eosinophils # (auto) 0 10 ^3/uL (0-0.8); Hematocrit 29.4 % (36.0-46.0); Hemoglobin 9.8 g/dL (12.2-16.2); Lymphocytes # (auto) 0.2 10 ^3/uL (0.4-5.4); Lymphocytes % (auto) 2.3 % (10.0-50.0); Mean Corpuscular Hemoglobin 28.9 pg (28.0-32.0); Mean Corpuscular Hgb Conc. 33.2 g/dL (32.0-36.0); Mean Corpuscular Volume 87.1 fL (80.0-100.0); Monocytes # (auto) 0.3 10 ^3/uL (0-1.3); Monocytes % (auto) 3.2 % (0.0-12.0); Neutrophils # (auto) 9.5 10 ^3/uL (1.6-8.6); Nucleated Red Blood Cells % 0.4 %; Red Blood Cells 3.38 10^6/uL (4.0-5.20); Red Cell Distribution Width 14.4 % (11.8-14.3); White Blood Cell 10.1 10^3/uL (4.4-10.8)
[2021-03-17 05:58] LABS: BUN/Creatinine Ratio 47.2; Calcium 7.5 mg/dL (8.5-10.1); Potassium 4.3 mmol/L (3.5-5.1)
[2021-03-17] MEDS: SODIUM BICARBONATE 50ML VIAL 75 ML in D5W 5% 1,000 ML IV SCH (08:00)
[2021-03-17] MEDS: NOREPINEPHRINE 8 MG/250ML KIT 250 ML IV SCH (09:08)
[2021-03-17] MEDS: ENOXAPARIN SOD 40 MG/0.4 ML SYRINGE SC SCH ×2 (09:50→20:34)
[2021-03-17] MEDS: DexAMETHasone SOD PHOS 10MG/1ML VIAL INJ IV SCH (09:50)
[2021-03-17] MEDS: CLOPIDOGREL BISULFATE 75 MG TAB PO SCH (09:51)
[2021-03-17] MEDS: ASCORBIC ACID 1,000 MG TAB PO SCH (09:51)
[2021-03-17] MEDS: FUROSEMIDE 20 MG/2 ML VIAL IV SCH (09:51)
[2021-03-17] MEDS: MULTIPLE VITAMIN TAB PO SCH (09:51)
[2021-03-17] MEDS: ASPirin 81 mg TAB PO SCH (09:51)
[2021-03-17] MEDS: dilTIAZem 120MG ER CAP PO SCH (09:52)
[2021-03-17] MEDS: ZINC SULFATE 220mg CAP or TAB PO SCH (09:52)
[2021-03-17] MEDS: CHOLECALCIFEROL (VITD3) 2,000 UNIT CAP/TAB PO SCH (09:52)
[2021-03-17] MEDS: AMIODARONE HCL 200 MG TAB PO SCH ×2 (09:52→20:34)
[2021-03-17] MEDS: FLORASTOR (S. BOULARDII) 250 MG CAP PO SCH ×2 (09:52→20:34)
[2021-03-17] MEDS: PROPOFOL 100 ML IV SCH ×2 (10:18→15:00)
[2021-03-17] MEDS: INSULIN LANTUS (GLARGINE) 1 /0.01ml (100units/ml) SC SCH ×2 (10:22→21:48)
[2021-03-17] MEDS: MIDAZOLAM DRIP 50 mg/50mL 50 ML IV SCH (11:00)
[2021-03-17] MEDS: FAMOTIDINE (10MG/ML) 2ML VL IV SCH (13:14)
[2021-03-17] MEDS: fentaNYL Drip 2500mCg/250mlNS 250 ML IV SCH ×2 (13:41)
[2021-03-17] MEDS: Vital AF 1.2 Cal 1 liter bottle GT SCH (18:55)
[2021-03-18] VITALS (103 sets, daily range): BP systolic 84–153; BP diastolic 41–87
[2021-03-18] MEDS: ACCU-CHEK COMFORT CURVE STRIP VI SCH ×5 (00:18→23:50)
[2021-03-18] MEDS: InsuLIN REG 1unit/0.01ml Soln (100units/ml) SC SCH ×5 (00:24→23:50)
[2021-03-18] MEDS: AZTREONAM 1GM INJ 1 GM in D5W 5% 50 ML IV SCH ×3 (02:28→18:24)
[2021-03-18] MEDS: fentaNYL Drip 2500mCg/250mlNS 250 ML IV SCH ×2 (02:43→14:52)
[2021-03-18] MEDS: PROPOFOL 100 ML IV SCH (02:49)
[2021-03-18] MEDS: VANCOMYCIN HCL 125MG/5ML ORAL SOL PO SCH ×4 (06:00→21:44)
[2021-03-18] MEDS: SODIUM CHLOR 0.9% PF (SALINE LOCK) 10ML VIAL/SYR IV SCH ×3 (06:00→21:44)
[2021-03-18] MEDS: BUDESONIDE (INHALATION) 0.5 MG/2 ML NEB NEB SCH ×2 (06:48→19:09)
[2021-03-18] MEDS: ALBUTEROL SULF 2.5 MG/0.5ML(0.5%) NEB SOLN NEB PRN ×2 (06:48→19:09)
[2021-03-18] MEDS: MULTIPLE VITAMIN TAB PO SCH (09:29)
[2021-03-18] MEDS: CLOPIDOGREL BISULFATE 75 MG TAB PO SCH (09:29)
[2021-03-18] MEDS: AMIODARONE HCL 200 MG TAB PO SCH ×2 (09:29→21:44)
[2021-03-18] MEDS: FLORASTOR (S. BOULARDII) 250 MG CAP PO SCH ×2 (09:29→21:44)
[2021-03-18] MEDS: CHOLECALCIFEROL (VITD3) 2,000 UNIT CAP/TAB PO SCH (09:29)
[2021-03-18] MEDS: DexAMETHasone SOD PHOS 10MG/1ML VIAL INJ IV SCH (09:29)
[2021-03-18] MEDS: FUROSEMIDE 20 MG/2 ML VIAL IV SCH (09:29)
[2021-03-18] MEDS: ASPirin 81 mg TAB PO SCH (09:29)
[2021-03-18] MEDS: ENOXAPARIN SOD 40 MG/0.4 ML SYRINGE SC SCH ×2 (09:30→21:44)
[2021-03-18] MEDS: FAMOTIDINE (10MG/ML) 2ML VL IV SCH (09:31)
[2021-03-18] MEDS: INSULIN LANTUS (GLARGINE) 1 /0.01ml (100units/ml) SC SCH ×2 (10:00→21:46)
[2021-03-18] MEDS ORDERED: PRALUENT 75 MG SC SCH (10:00)
[2021-03-18] MEDS: MIDAZOLAM DRIP 50 mg/50mL 50 ML IV SCH (11:00)
[2021-03-18 12:17] LABS: Partial Thromboplastin Time 27.6 sec (23.6-33.0)
[2021-03-18] MEDS: PRALUENT 75 MG/ML SC SCH (13:00)
[2021-03-18] MEDS: NOREPINEPHRINE 8 MG/250ML KIT 250 ML IV SCH (13:00)
[2021-03-18] MEDS: dilTIAZem 125mg/125ml BAG KIT 125 ML IV SCH (21:44)
[2021-03-19] VITALS (105 sets, daily range): BP systolic 94–140; BP diastolic 45–78
[2021-03-19] MEDS: AZTREONAM 1GM INJ 1 GM in D5W 5% 50 ML IV SCH ×3 (02:06→18:00)
[2021-03-19] MEDS: NOREPINEPHRINE 8 MG/250ML KIT 250 ML IV SCH (04:00)
[2021-03-19 05:48] LABS: BUN/Creatinine Ratio 59.8; Potassium 4.8 mmol/L (3.5-5.1)
[2021-03-19] MEDS: VANCOMYCIN HCL 125MG/5ML ORAL SOL PO SCH ×4 (05:52→21:46)
[2021-03-19] MEDS: SODIUM CHLOR 0.9% PF (SALINE LOCK) 10ML VIAL/SYR IV SCH ×4 (05:52→21:46)
[2021-03-19] MEDS: ACCU-CHEK COMFORT CURVE STRIP VI SCH ×4 (05:53→23:56)
[2021-03-19] MEDS: InsuLIN REG 1unit/0.01ml Soln (100units/ml) SC SCH ×4 (05:55→23:56)
[2021-03-19] MEDS: BUDESONIDE (INHALATION) 0.5 MG/2 ML NEB NEB SCH ×2 (05:59→19:45)
[2021-03-19] MEDS: ALBUTEROL SULF 2.5 MG/0.5ML(0.5%) NEB SOLN NEB PRN ×2 (05:59→19:45)
[2021-03-19] MEDS: ENOXAPARIN SOD 40 MG/0.4 ML SYRINGE SC SCH ×2 (10:03→21:46)
[2021-03-19] MEDS: DexAMETHasone SOD PHOS 10MG/1ML VIAL INJ IV SCH (10:04)
[2021-03-19] MEDS: ASPirin 81 mg TAB PO SCH (10:04)
[2021-03-19] MEDS: FAMOTIDINE (10MG/ML) 2ML VL IV SCH (10:04)
[2021-03-19] MEDS: CHOLECALCIFEROL (VITD3) 2,000 UNIT CAP/TAB PO SCH (10:04)
[2021-03-19] MEDS: FLORASTOR (S. BOULARDII) 250 MG CAP PO SCH ×2 (10:05→21:46)
[2021-03-19] MEDS: AMIODARONE HCL 200 MG TAB PO SCH ×2 (10:05→21:46)
[2021-03-19] MEDS: MULTIPLE VITAMIN TAB PO SCH (10:05)
[2021-03-19] MEDS: CLOPIDOGREL BISULFATE 75 MG TAB PO SCH (10:05)
[2021-03-19] MEDS: INSULIN LANTUS (GLARGINE) 1 /0.01ml (100units/ml) SC SCH ×2 (10:08→23:00)
[2021-03-19] MEDS: MIDAZOLAM DRIP 50 mg/50mL 50 ML IV SCH (11:00)
[2021-03-19] MEDS: PROPOFOL 100 ML IV SCH ×2 (11:07→14:47)
[2021-03-19] MEDS ORDERED: LIDOCAINE 1% (LOCAL ANESTH.) PF 5ml SDV ID ONE (11:15)
[2021-03-19] MEDS: fentaNYL Drip 2500mCg/250mlNS 250 ML IV SCH (15:44)
[2021-03-19] MEDS: dilTIAZem 125mg/125ml BAG KIT 125 ML IV SCH (19:21)
[2021-03-20] VITALS (103 sets, daily range): BP systolic 81–161; BP diastolic 36–86
[2021-03-20] MEDS: AZTREONAM 1GM INJ 1 GM in D5W 5% 50 ML IV SCH ×3 (02:00→18:00)
[2021-03-20 05:23] LABS: Hematocrit 29.2 % (36.0-46.0); Hemoglobin 9.6 g/dL (12.2-16.2); Mean Corpuscular Hemoglobin 28.6 pg (28.0-32.0); Mean Corpuscular Hgb Conc. 32.8 g/dL (32.0-36.0); Mean Corpuscular Volume 87.2 fL (80.0-100.0); Red Blood Cells 3.35 10^6/uL (4.0-5.20); Red Cell Distribution Width 14.8 % (11.8-14.3)
[2021-03-20 05:39] LABS: Albumin 1.5 g/dL (3.4-5.0); BUN/Creatinine Ratio 68.4; Calcium 8.1 mg/dL (8.5-10.1); Magnesium 3.1 mg/dL (1.6-2.6); Potassium 4.5 mmol/L (3.5-5.1)
[2021-03-20 05:42] LABS: Bilirubin, Total 0.2 mg/dL (0.2-1.0); Total Protein 5.5 g/dL (6.4-8.2)
[2021-03-20] MEDS: InsuLIN REG 1unit/0.01ml Soln (100units/ml) SC SCH ×3 (06:00→18:00)
[2021-03-20] MEDS: ALBUTEROL SULF 2.5 MG/0.5ML(0.5%) NEB SOLN NEB PRN ×2 (06:10→19:38)
[2021-03-20] MEDS: BUDESONIDE (INHALATION) 0.5 MG/2 ML NEB NEB SCH ×2 (06:10→19:38)
[2021-03-20 06:18] LABS: Basophils % (manual) 0 (0.0-2.0); Blast Cells 0; Eosinophils % (manual) 0 (0-7); Metamyelocytes % 0; Myelocytes % 0; Promyelocytes % 0; Reactive Lymphocytes 0
[2021-03-20] MEDS: SODIUM CHLOR 0.9% PF (SALINE LOCK) 10ML VIAL/SYR IV SCH ×5 (06:23→22:56)
[2021-03-20] MEDS: ACCU-CHEK COMFORT CURVE STRIP VI SCH ×3 (06:23→18:00)
[2021-03-20] MEDS: VANCOMYCIN HCL 125MG/5ML ORAL SOL PO SCH ×4 (06:23→23:02)
[2021-03-20 07:49] LABS: Band Neutrophils % (manual) 4; Lymphocytes % (manual) 5 (10.0-50.0); Monocytes % (manual) 3 (0-12)
[2021-03-20] MEDS: FAMOTIDINE (10MG/ML) 2ML VL IV SCH (09:34)
[2021-03-20] MEDS: ENOXAPARIN SOD 40 MG/0.4 ML SYRINGE SC SCH ×2 (09:34→23:02)
[2021-03-20] MEDS: AMIODARONE HCL 200 MG TAB PO SCH ×2 (09:35→22:59)
[2021-03-20] MEDS: ASPirin 81 mg TAB PO SCH (09:35)
[2021-03-20] MEDS: CLOPIDOGREL BISULFATE 75 MG TAB PO SCH (09:35)
[2021-03-20] MEDS: DexAMETHasone SOD PHOS 10MG/1ML VIAL INJ IV SCH (09:35)
[2021-03-20] MEDS: FLORASTOR (S. BOULARDII) 250 MG CAP PO SCH ×2 (09:35→22:59)
[2021-03-20] MEDS: CHOLECALCIFEROL (VITD3) 2,000 UNIT CAP/TAB PO SCH (09:35)
[2021-03-20] MEDS: MULTIPLE VITAMIN TAB PO SCH (09:35)
[2021-03-20] MEDS: INSULIN LANTUS (GLARGINE) 1 /0.01ml (100units/ml) SC SCH ×2 (09:38→23:00)
[2021-03-20] MEDS: NOREPINEPHRINE 8 MG/250ML KIT 250 ML IV SCH (10:35)
[2021-03-20] MEDS: MIDAZOLAM DRIP 50 mg/50mL 50 ML IV SCH (11:00)
[2021-03-20] MEDS ORDERED: FUROSEMIDE 40 MG/4 ML VIAL IV ONE (13:00)
[2021-03-20] MEDS: PROPOFOL 100 ML IV SCH ×2 (13:39→20:00)
[2021-03-20] MEDS ORDERED: FUROSEMIDE 20 MG/2 ML VIAL IV ONE (13:51)
[2021-03-20] MEDS: fentaNYL Drip 2500mCg/250mlNS 250 ML IV SCH (17:20)
[2021-03-20] MEDS: Vital AF 1.2 Cal 1 liter bottle GT SCH (20:30)
[2021-03-20] MEDS: dilTIAZem 125mg/125ml BAG KIT 125 ML IV SCH (22:45)
[2021-03-21] VITALS (98 sets, daily range): BP systolic 74–163; BP diastolic 41–95
[2021-03-21] MEDS: ACCU-CHEK COMFORT CURVE STRIP VI SCH ×5 (00:13→23:43)
[2021-03-21] MEDS: AZTREONAM 1GM INJ 1 GM in D5W 5% 50 ML IV SCH ×3 (02:00→17:06)
[2021-03-21] MEDS: fentaNYL Drip 2500mCg/250mlNS 250 ML IV SCH ×2 (04:30→16:26)
[2021-03-21] MEDS: PROPOFOL 100 ML IV SCH ×3 (04:30→20:00)
[2021-03-21 05:23] LABS: Hematocrit 25.7 % (36.0-46.0); Hemoglobin 8.8 g/dL (12.2-16.2); Mean Corpuscular Hemoglobin 29.8 pg (28.0-32.0); Mean Corpuscular Hgb Conc. 34.1 g/dL (32.0-36.0); Mean Corpuscular Volume 87.6 fL (80.0-100.0); Red Blood Cells 2.94 10^6/uL (4.0-5.20); Red Cell Distribution Width 14.7 % (11.8-14.3); White Blood Cell 14.4 10^3/uL (4.4-10.8)
[2021-03-21 05:32] LABS: Basophils % (manual) 0 (0.0-2.0); Blast Cells 0; Eosinophils % (manual) 0 (0-7); Myelocytes % 0; Promyelocytes % 0; Reactive Lymphocytes 0
[2021-03-21] MEDS: VANCOMYCIN HCL 125MG/5ML ORAL SOL PO SCH ×4 (05:38→22:12)
[2021-03-21] MEDS: SODIUM CHLOR 0.9% PF (SALINE LOCK) 10ML VIAL/SYR IV SCH ×5 (05:38→22:12)
[2021-03-21] MEDS: InsuLIN REG 1unit/0.01ml Soln (100units/ml) SC SCH ×5 (05:39→23:43)
[2021-03-21 05:41] LABS: Albumin 1.2 g/dL (3.4-5.0); Calcium 7.2 mg/dL (8.5-10.1); Potassium 4.4 mmol/L (3.5-5.1)
[2021-03-21 05:45] LABS: BUN/Creatinine Ratio 73.1; Bilirubin, Total 0.3 mg/dL (0.2-1.0); Total Protein 5.2 g/dL (6.4-8.2)
[2021-03-21] MEDS: ALBUTEROL SULF 2.5 MG/0.5ML(0.5%) NEB SOLN NEB PRN ×3 (08:19→18:17)
[2021-03-21] MEDS: BUDESONIDE (INHALATION) 0.5 MG/2 ML NEB NEB SCH ×2 (08:20→18:17)
[2021-03-21] MEDS: FAMOTIDINE (10MG/ML) 2ML VL IV SCH (08:53)
[2021-03-21] MEDS: ASPirin 81 mg TAB PO SCH (08:53)
[2021-03-21] MEDS: DexAMETHasone SOD PHOS 10MG/1ML VIAL INJ IV SCH (08:53)
[2021-03-21] MEDS: MULTIPLE VITAMIN TAB PO SCH (08:54)
[2021-03-21] MEDS: FLORASTOR (S. BOULARDII) 250 MG CAP PO SCH ×2 (08:54→22:13)
[2021-03-21] MEDS: AMIODARONE HCL 200 MG TAB PO SCH ×2 (08:54→22:13)
[2021-03-21] MEDS: CHOLECALCIFEROL (VITD3) 2,000 UNIT CAP/TAB PO SCH (08:55)
[2021-03-21] MEDS: CLOPIDOGREL BISULFATE 75 MG TAB PO SCH (08:55)
[2021-03-21] MEDS: ENOXAPARIN SOD 40 MG/0.4 ML SYRINGE SC SCH ×2 (08:57→22:14)
[2021-03-21 09:03] LABS: Band Neutrophils % (manual) 5; Lymphocytes % (manual) 2 (10.0-50.0); Metamyelocytes % 2; Monocytes % (manual) 2 (0-12)
[2021-03-21] MEDS: INSULIN LANTUS (GLARGINE) 1 /0.01ml (100units/ml) SC SCH ×2 (09:28→22:14)
[2021-03-21] MEDS: NOREPINEPHRINE 8 MG/250ML KIT 250 ML IV SCH (09:40)
[2021-03-21] MEDS: MIDAZOLAM DRIP 50 mg/50mL 50 ML IV SCH (11:00)
[2021-03-21] MEDS: dilTIAZem 125mg/125ml BAG KIT 125 ML IV SCH (22:45)
[2021-03-22] VITALS (101 sets, daily range): BP systolic 81–151; BP diastolic 35–84
[2021-03-22] MEDS: AZTREONAM 1GM INJ 1 GM in D5W 5% 50 ML IV SCH ×3 (02:00→19:00)
[2021-03-22] MEDS: PROPOFOL 100 ML IV SCH ×2 (03:30→20:00)
[2021-03-22 05:24] LABS: Basophils # (auto) 0.1 10 ^3/uL (0-0.2); Basophils % (auto) 0.5 % (0.0-2.0); Eosinophils # (auto) 0.8 10 ^3/uL (0-0.8); Eosinophils % (auto) 4.3 % (0.0-7.0); Hematocrit 30.2 % (36.0-46.0); Hemoglobin 9.9 g/dL (12.2-16.2); Lymphocytes # (auto) 0.9 10 ^3/uL (0.4-5.4); Mean Corpuscular Hgb Conc. 32.8 g/dL (32.0-36.0); Mean Corpuscular Volume 88.3 fL (80.0-100.0); Monocytes # (auto) 0.6 10 ^3/uL (0-1.3); Monocytes % (auto) 3.1 % (0.0-12.0); Neutrophils # (auto) 15.9 10 ^3/uL (1.6-8.6); Neutrophils % (auto) 87.1 % (37.0-80.0); Nucleated Red Blood Cells % 0.1 %; Red Blood Cells 3.42 10^6/uL (4.0-5.20); Red Cell Distribution Width 15.1 % (11.8-14.3); White Blood Cell 18.2 10^3/uL (4.4-10.8)
[2021-03-22] MEDS: ACCU-CHEK COMFORT CURVE STRIP VI SCH ×3 (06:00→17:54)
[2021-03-22] MEDS: VANCOMYCIN HCL 125MG/5ML ORAL SOL PO SCH ×4 (06:00→22:04)
[2021-03-22] MEDS: InsuLIN REG 1unit/0.01ml Soln (100units/ml) SC SCH ×3 (06:00→17:55)
[2021-03-22] MEDS: SODIUM CHLOR 0.9% PF (SALINE LOCK) 10ML VIAL/SYR IV SCH ×4 (06:00→22:04)
[2021-03-22 09:01] LABS: Basophils % (manual) 0 (0.0-2.0); Blast Cells 0; Myelocytes % 0; Promyelocytes % 0; Reactive Lymphocytes 0
[2021-03-22 09:29] LABS: Band Neutrophils % (manual) 6; Eosinophils % (manual) 2 (0-7); Lymphocytes % (manual) 4 (10.0-50.0); Metamyelocytes % 1; Monocytes % (manual) 2 (0-12)
[2021-03-22] MEDS: CHOLECALCIFEROL (VITD3) 2,000 UNIT CAP/TAB PO SCH (10:00)
[2021-03-22] MEDS: CLOPIDOGREL BISULFATE 75 MG TAB PO SCH (10:00)
[2021-03-22] MEDS: DexAMETHasone SOD PHOS 10MG/1ML VIAL INJ IV SCH (10:00)
[2021-03-22] MEDS ORDERED: FUROSEMIDE 40 MG/4 ML VIAL IV SCH (10:00)
[2021-03-22] MEDS: ASPirin 81 mg TAB PO SCH (10:00)
[2021-03-22] MEDS: FAMOTIDINE (10MG/ML) 2ML VL IV SCH (10:00)
[2021-03-22] MEDS: FLORASTOR (S. BOULARDII) 250 MG CAP PO SCH ×2 (10:00→22:05)
[2021-03-22] MEDS: MULTIPLE VITAMIN TAB PO SCH (10:00)
[2021-03-22] MEDS: INSULIN LANTUS (GLARGINE) 1 /0.01ml (100units/ml) SC SCH ×2 (10:00→22:06)
[2021-03-22] MEDS: ENOXAPARIN SOD 40 MG/0.4 ML SYRINGE SC SCH ×2 (10:00→22:07)
[2021-03-22] MEDS: AMIODARONE HCL 200 MG TAB PO SCH ×2 (10:00→22:05)
[2021-03-22] MEDS: BUDESONIDE (INHALATION) 0.5 MG/2 ML NEB NEB SCH ×2 (10:31→19:16)
[2021-03-22] MEDS: ALBUTEROL SULF 2.5 MG/0.5ML(0.5%) NEB SOLN NEB PRN ×2 (10:31→19:16)
[2021-03-22] MEDS: MIDAZOLAM DRIP 50 mg/50mL 50 ML IV SCH (10:45)
[2021-03-22] MEDS: FUROSEMIDE 20 MG/2 ML VIAL IV SCH (11:15)
[2021-03-22] MEDS: NOREPINEPHRINE 8 MG/250ML KIT 250 ML IV SCH ×2 (12:06→23:13)
[2021-03-22] MEDS: fentaNYL Drip 2500mCg/250mlNS 250 ML IV SCH (18:17)
[2021-03-22] MEDS: Vital AF 1.2 Cal 1 liter bottle GT SCH (20:00)
[2021-03-23] VITALS (98 sets, daily range): BP systolic 85–181; BP diastolic 38–90
[2021-03-23] MEDS: ACCU-CHEK COMFORT CURVE STRIP VI SCH ×4 (00:18→18:00)
[2021-03-23] MEDS: PROPOFOL 100 ML IV SCH ×3 (01:00→07:48)
[2021-03-23] MEDS: AZTREONAM 1GM INJ 1 GM in D5W 5% 50 ML IV SCH (02:00)
[2021-03-23] MEDS: ALBUTEROL SULF 2.5 MG/0.5ML(0.5%) NEB SOLN NEB PRN ×2 (05:53→18:55)
[2021-03-23] MEDS: BUDESONIDE (INHALATION) 0.5 MG/2 ML NEB NEB SCH ×2 (05:54→18:55)
[2021-03-23] MEDS: VANCOMYCIN HCL 125MG/5ML ORAL SOL PO SCH (06:00)
[2021-03-23] MEDS: InsuLIN REG 1unit/0.01ml Soln (100units/ml) SC SCH ×4 (06:00→18:00)
[2021-03-23 07:17] LABS: Basophils # (auto) 0.1 10 ^3/uL (0-0.2); Basophils % (auto) 0.4 % (0.0-2.0); Eosinophils # (auto) 0.1 10 ^3/uL (0-0.8); Eosinophils % (auto) 0.3 % (0.0-7.0); Hematocrit 26.7 % (36.0-46.0); Hemoglobin 8.9 g/dL (12.2-16.2); Lymphocytes # (auto) 0.4 10 ^3/uL (0.4-5.4); Mean Corpuscular Hemoglobin 30.3 pg (28.0-32.0); Mean Corpuscular Hgb Conc. 33.4 g/dL (32.0-36.0); Mean Corpuscular Volume 90.8 fL (80.0-100.0); Monocytes # (auto) 0.6 10 ^3/uL (0-1.3); Monocytes % (auto) 3.3 % (0.0-12.0); Neutrophils # (auto) 18.4 10 ^3/uL (1.6-8.6); Nucleated Red Blood Cells % 0.2 %; Red Blood Cells 2.94 10^6/uL (4.0-5.20); Red Cell Distribution Width 15.7 % (11.8-14.3); White Blood Cell 19.6 10^3/uL (4.4-10.8)
[2021-03-23 07:18] LABS: Potassium 4.3 mmol/L (3.5-5.1)
[2021-03-23 07:26] LABS: Albumin 1.1 g/dL (3.4-5.0); BUN/Creatinine Ratio 69.8; Bilirubin, Total 0.3 mg/dL (0.2-1.0); Calcium 7.6 mg/dL (8.5-10.1); Total Protein 5.5 g/dL (6.4-8.2)
[2021-03-23] MEDS: NOREPINEPHRINE 8 MG/250ML KIT 250 ML IV SCH (07:49)
[2021-03-23] MEDS: fentaNYL Drip 2500mCg/250mlNS 250 ML IV SCH ×2 (07:51→19:08)
[2021-03-23] MEDS: AMIODARONE HCL 200 MG TAB PO SCH ×2 (10:00→21:45)
[2021-03-23] MEDS: FUROSEMIDE 20 MG/2 ML VIAL IV SCH (10:00)
[2021-03-23] MEDS: FLORASTOR (S. BOULARDII) 250 MG CAP PO SCH ×2 (10:00→21:45)
[2021-03-23] MEDS: ENOXAPARIN SOD 40 MG/0.4 ML SYRINGE SC SCH ×2 (10:00→21:46)
[2021-03-23] MEDS: ASPirin 81 mg TAB PO SCH (10:00)
[2021-03-23] MEDS: INSULIN LANTUS (GLARGINE) 1 /0.01ml (100units/ml) SC SCH ×2 (10:00→21:45)
[2021-03-23] MEDS: CLOPIDOGREL BISULFATE 75 MG TAB PO SCH (10:00)
[2021-03-23] MEDS: FAMOTIDINE (10MG/ML) 2ML VL IV SCH ×2 (10:00→21:44)
[2021-03-23] MEDS: CHOLECALCIFEROL (VITD3) 2,000 UNIT CAP/TAB PO SCH (10:00)
[2021-03-23] MEDS: DexAMETHasone SOD PHOS 10MG/1ML VIAL INJ IV SCH (10:00)
[2021-03-23] MEDS: MULTIPLE VITAMIN TAB PO SCH (10:00)
[2021-03-23] MEDS: SODIUM CHLOR 0.9% PF (SALINE LOCK) 10ML VIAL/SYR IV SCH ×2 (10:10→21:44)
[2021-03-23] MEDS: MIDAZOLAM DRIP 50 mg/50mL 50 ML IV SCH (11:00)
[2021-03-23] MEDS: FLUCONAZOLE 200MG/100ML 100 ML IV SCH (11:08)
[2021-03-23] MEDS: MEROPENEM 1GM IVPB 100 ML IV SCH ×2 (14:19→21:44)
[2021-03-24] VITALS (96 sets, daily range): BP systolic 82–189; BP diastolic 37–109
[2021-03-24] MEDS: NOREPINEPHRINE 8 MG/250ML KIT 250 ML IV SCH
[2021-03-24] MEDS: PROPOFOL 100 ML IV SCH ×3 (01:00→21:00)
[2021-03-24] MEDS: InsuLIN REG 1unit/0.01ml Soln (100units/ml) SC SCH ×5 (06:00→23:56)
[2021-03-24] MEDS: MEROPENEM 1GM IVPB 100 ML IV SCH ×3 (06:00→22:09)
[2021-03-24] MEDS: ACCU-CHEK COMFORT CURVE STRIP VI SCH ×5 (06:00→23:57)
[2021-03-24] MEDS: BUDESONIDE (INHALATION) 0.5 MG/2 ML NEB NEB SCH ×2 (06:48→21:58)
[2021-03-24] MEDS: ALBUTEROL SULF 2.5 MG/0.5ML(0.5%) NEB SOLN NEB PRN ×2 (06:48→21:58)
[2021-03-24] MEDS: SODIUM CHLOR 0.9% PF (SALINE LOCK) 10ML VIAL/SYR IV SCH ×2 (10:00→22:09)
[2021-03-24] MEDS: DexAMETHasone SOD PHOS 10MG/1ML VIAL INJ IV SCH (10:47)
[2021-03-24] MEDS: FLUCONAZOLE 200MG/100ML 100 ML IV SCH ×2 (10:47→12:15)
[2021-03-24] MEDS: FUROSEMIDE 20 MG/2 ML VIAL IV SCH (10:48)
[2021-03-24] MEDS: ASPirin 81 mg TAB PO SCH (10:49)
[2021-03-24] MEDS: FLORASTOR (S. BOULARDII) 250 MG CAP PO SCH ×2 (10:49→22:10)
[2021-03-24] MEDS: AMIODARONE HCL 200 MG TAB PO SCH ×2 (10:49→22:10)
[2021-03-24] MEDS: FAMOTIDINE (10MG/ML) 2ML VL IV SCH ×2 (10:49→22:09)
[2021-03-24] MEDS: MULTIPLE VITAMIN TAB PO SCH (10:50)
[2021-03-24] MEDS: MIDAZOLAM DRIP 50 mg/50mL 50 ML IV SCH (10:50)
[2021-03-24] MEDS: CHOLECALCIFEROL (VITD3) 2,000 UNIT CAP/TAB PO SCH (10:50)
[2021-03-24] MEDS: ENOXAPARIN SOD 40 MG/0.4 ML SYRINGE SC SCH ×2 (10:50→22:47)
[2021-03-24] MEDS: CLOPIDOGREL BISULFATE 75 MG TAB PO SCH (10:50)
[2021-03-24] MEDS: fentaNYL Drip 2500mCg/250mlNS 250 ML IV SCH ×2 (10:58→22:00)
[2021-03-24] MEDS: INSULIN LANTUS (GLARGINE) 1 /0.01ml (100units/ml) SC SCH ×2 (10:58→22:10)
[2021-03-25] VITALS (101 sets, daily range): BP systolic 77–158; BP diastolic 46–93
[2021-03-25 05:19] LABS: Basophils # (auto) 0 10 ^3/uL (0-0.2); Basophils % (auto) 0.2 % (0.0-2.0); Eosinophils # (auto) 0 10 ^3/uL (0-0.8); Hematocrit 27.3 % (36.0-46.0); Hemoglobin 8.8 g/dL (12.2-16.2); Lymphocytes # (auto) 0.4 10 ^3/uL (0.4-5.4); Lymphocytes % (auto) 1.9 % (10.0-50.0); Mean Corpuscular Hemoglobin 28.8 pg (28.0-32.0); Mean Corpuscular Hgb Conc. 32.3 g/dL (32.0-36.0); Mean Corpuscular Volume 88.9 fL (80.0-100.0); Monocytes # (auto) 0.8 10 ^3/uL (0-1.3); Monocytes % (auto) 4.2 % (0.0-12.0); Neutrophils # (auto) 17.3 10 ^3/uL (1.6-8.6); Neutrophils % (auto) 93.7 % (37.0-80.0); Nucleated Red Blood Cells % 0.3 %; Red Blood Cells 3.07 10^6/uL (4.0-5.20); Red Cell Distribution Width 15.5 % (11.8-14.3); White Blood Cell 18.5 10^3/uL (4.4-10.8)
[2021-03-25 05:38] LABS: Potassium 4.2 mmol/L (3.5-5.1)
[2021-03-25 05:43] LABS: Albumin 1.1 g/dL (3.4-5.0); BUN/Creatinine Ratio 64.4; Calcium 7.4 mg/dL (8.5-10.1)
[2021-03-25 05:49] LABS: Bilirubin, Total 0.3 mg/dL (0.2-1.0); Total Protein 4.7 g/dL (6.4-8.2)
[2021-03-25] MEDS: ACCU-CHEK COMFORT CURVE STRIP VI SCH ×3 (06:00→17:29)
[2021-03-25] MEDS: InsuLIN REG 1unit/0.01ml Soln (100units/ml) SC SCH ×3 (06:00→17:28)
[2021-03-25] MEDS: MEROPENEM 1GM IVPB 100 ML IV SCH ×3 (06:00→22:45)
[2021-03-25] MEDS: ALBUTEROL SULF 2.5 MG/0.5ML(0.5%) NEB SOLN NEB PRN ×2 (06:57→22:04)
[2021-03-25] MEDS: BUDESONIDE (INHALATION) 0.5 MG/2 ML NEB NEB SCH ×2 (06:57→22:04)
[2021-03-25] MEDS: MIDAZOLAM DRIP 50 mg/50mL 50 ML IV SCH (08:08)
[2021-03-25] MEDS: INSULIN LANTUS (GLARGINE) 1 /0.01ml (100units/ml) SC SCH ×2 (10:00→22:00)
[2021-03-25] MEDS: DexAMETHasone SOD PHOS 10MG/1ML VIAL INJ IV SCH (11:19)
[2021-03-25] MEDS: SODIUM CHLOR 0.9% PF (SALINE LOCK) 10ML VIAL/SYR IV SCH ×2 (11:20→22:46)
[2021-03-25] MEDS: FUROSEMIDE 20 MG/2 ML VIAL IV SCH (11:20)
[2021-03-25] MEDS: FLUCONAZOLE 200MG/100ML 100 ML IV SCH ×2 (11:20→11:26)
[2021-03-25] MEDS: FAMOTIDINE (10MG/ML) 2ML VL IV SCH ×2 (11:20→22:45)
[2021-03-25] MEDS: FLORASTOR (S. BOULARDII) 250 MG CAP PO SCH ×2 (11:21→22:48)
[2021-03-25] MEDS: MULTIPLE VITAMIN TAB PO SCH (11:21)
[2021-03-25] MEDS: ASPirin 81 mg TAB PO SCH (11:21)
[2021-03-25] MEDS: AMIODARONE HCL 200 MG TAB PO SCH ×2 (11:21→22:48)
[2021-03-25] MEDS: ENOXAPARIN SOD 40 MG/0.4 ML SYRINGE SC SCH ×2 (11:22→22:49)
[2021-03-25] MEDS: CLOPIDOGREL BISULFATE 75 MG TAB PO SCH (11:22)
[2021-03-25] MEDS: CHOLECALCIFEROL (VITD3) 2,000 UNIT CAP/TAB PO SCH (11:22)
[2021-03-25] MEDS: NOREPINEPHRINE 8 MG/250ML KIT 250 ML IV SCH (13:00)
[2021-03-25] MEDS: fentaNYL Drip 2500mCg/250mlNS 250 ML IV SCH (17:29)
[2021-03-26] VITALS (87 sets, daily range): BP systolic 76–175; BP diastolic 46–98
[2021-03-26] MEDS: ACCU-CHEK COMFORT CURVE STRIP VI SCH ×4 (00:29→17:52)
[2021-03-26] MEDS: InsuLIN REG 1unit/0.01ml Soln (100units/ml) SC SCH ×4 (00:30→17:51)
[2021-03-26] MEDS: MEROPENEM 1GM IVPB 100 ML IV SCH ×2 (06:30→14:13)
[2021-03-26] MEDS: ALBUTEROL SULF 2.5 MG/0.5ML(0.5%) NEB SOLN NEB PRN (06:45)
[2021-03-26] MEDS: BUDESONIDE (INHALATION) 0.5 MG/2 ML NEB NEB SCH (06:45)
[2021-03-26] MEDS: INSULIN LANTUS (GLARGINE) 1 /0.01ml (100units/ml) SC SCH (10:00)
[2021-03-26] MEDS: FUROSEMIDE 20 MG/2 ML VIAL IV SCH (10:00)
[2021-03-26] MEDS: SODIUM CHLOR 0.9% PF (SALINE LOCK) 10ML VIAL/SYR IV SCH (10:00)
[2021-03-26] MEDS: FLUCONAZOLE 200MG/100ML 100 ML IV SCH ×2 (10:31→11:00)
[2021-03-26] MEDS: DexAMETHasone SOD PHOS 10MG/1ML VIAL INJ IV SCH (10:31)
[2021-03-26] MEDS: ASPirin 81 mg TAB PO SCH (10:32)
[2021-03-26] MEDS: FAMOTIDINE (10MG/ML) 2ML VL IV SCH (10:32)
[2021-03-26] MEDS: AMIODARONE HCL 200 MG TAB PO SCH (10:33)
[2021-03-26] MEDS: FLORASTOR (S. BOULARDII) 250 MG CAP PO SCH (10:33)
[2021-03-26] MEDS: MULTIPLE VITAMIN TAB PO SCH (10:33)
[2021-03-26] MEDS: CHOLECALCIFEROL (VITD3) 2,000 UNIT CAP/TAB PO SCH (10:35)
[2021-03-26] MEDS: CLOPIDOGREL BISULFATE 75 MG TAB PO SCH (10:35)
[2021-03-26] MEDS: ENOXAPARIN SOD 40 MG/0.4 ML SYRINGE SC SCH (10:36)
[2021-03-26] MEDS: MIDAZOLAM DRIP 50 mg/50mL 50 ML IV SCH (11:00)
[2021-03-26] MEDS: PROPOFOL 100 ML IV SCH (13:00)
[2021-03-26] MEDS: NOREPINEPHRINE 8 MG/250ML KIT 250 ML IV SCH (13:00)
[2021-03-26] MEDS ORDERED: MORPHINE SULFATE INJECTION 2 MG/ML SYRG IV PRN (20:15)
[2021-03-26] MEDS ORDERED: LORazepam 2MG/ML-1ML VIAL IV PRN (20:15)
== END 2021-03-27 02:10 | DRG 207 ==
LOC: ER 23:09 → TELE 02-27 04:16 → TELE-EAST 02-27 05:06 → TELE-E-ADS 03-12 10:36 → DOU IN ICU 03-12 11:37
PROVIDERS: ADMIT Nurse Practitioner Family; ATTEND Internal Medicine
PROC: XW033E5 Introduction of Remdesivir Anti-infective into Peripheral Vein, Percutaneous Approach, New Technology Group 5 (ICD-10-PCS; 2021-02-27)
PROC: 5A1955Z Respiratory Ventilation, Greater than 96 Consecutive Hours (ICD-10-PCS; principal; 2021-03-12)
PROC: 0BH17EZ Insertion of Endotracheal Airway into Trachea, Via Natural or Artificial Opening (ICD-10-PCS; 2021-03-12)
PROC: 06HM33Z Insertion of Infusion Device into Right Femoral Vein, Percutaneous Approach (ICD-10-PCS; 2021-03-12)
PROC: 02HV33Z Insertion of Infusion Device into Superior Vena Cava, Percutaneous Approach (ICD-10-PCS; 2021-03-19)
PROC: 0W9930Z Drainage of Right Pleural Cavity with Drainage Device, Percutaneous Approach (ICD-10-PCS; 2021-03-25)
DX: U07.1 COVID-19 (principal); J12.82 Pneumonia due to coronavirus disease 2019; J96.01 Acute respiratory failure with hypoxia; N17.0 Acute kidney failure with tubular necrosis; A41.89 Other specified sepsis; A04.72 Enterocolitis due to Clostridium difficile, not specified as recurrent; I50.32 Chronic diastolic (congestive) heart failure; Z99.11 Dependence on respirator [ventilator] status; N30.00 Acute cystitis without hematuria; I13.0 Hypertensive heart and chronic kidney disease with heart failure and stage 1 through stage 4 chronic kidney disease, or unspecified chronic kidney disease; D84.9 Immunodeficiency, unspecified; D89.834 Cytokine release syndrome, grade 4; Z66 Do not resuscitate; I25.10 Atherosclerotic heart disease of native coronary artery without angina pectoris; E78.5 Hyperlipidemia, unspecified; D64.9 Anemia, unspecified; I48.0 Paroxysmal atrial fibrillation; E87.6 Hypokalemia; M06.9 Rheumatoid arthritis, unspecified; N18.31 Chronic kidney disease, stage 3a; R73.03 Prediabetes; J98.2 Interstitial emphysema; Z83.3 Family history of diabetes mellitus; Z95.1 Presence of aortocoronary bypass graft; Z95.5 Presence of coronary angioplasty implant and graft; Z88.8 Allergy status to other drugs, medicaments and biological substances; Z88.1 Allergy status to other antibiotic agents; Z91.040 Latex allergy status; Z88.0 Allergy status to penicillin; Z88.2 Allergy status to sulfonamides; Z91.018 Allergy to other foods
CPT/HCPCS: 36415; 36569; 36600; 71045; 80048; 80053; 81001; 82570; 82728; 82805; 82962; 83036; 83615; 83735; 83880; 83935; 84100; 84132; 84300; 84484; 85007; 85025; 85027; 85379; 85610; 85730; 86141; 87040; 87070; 87077; 87081; 87086; 87088; 87205; 87426; 87493; 93005; 93925; 93970; 94002; 94003; 94640; 96361; 96365; 96367; G0378; J0330; J1100; J1450; J1815; J2185; J2250; J2405; J2704; J3490; J7060